=== PATIENT | female | born 1965 | race Caucasian/White ===

== ENCOUNTER 2019-06-13 10:06 | Outpatient (CLI) | payer MEDICARE, SELFPAY ==
[2019-06-13 10:23] LABS: Basophils Absolute Auto 0.03 K/mm3 (0.00-0.10); Basophils Percent Auto 0.3 % (0.0-1.0); Eosinophils Absolute Auto 0.08 K/mm3 (0.02-0.50); Eosinophils Percent Auto 0.9 % (1.0-6.0); Hematocrit 38.8 % (35.0-49.0); Hemoglobin 13.2 g/dL (12.0-15.0); Immature Granulocyte Absolute 0.05 K/mm3 (0.00-0.00); Immature Granulocyte Percent A 0.6 % (0.0-0.0); Lymphocytes Percent Auto 16.8 % (18.0-42.0); Mean Corpuscular Volume 93.9 fL (78.0-102.0); Mean Platelet Volume 9.5 fl (9.2-11.8); Monocytes Absolute Auto 0.27 K/mm3 (0.10-0.90); Neutrophils Percent Auto 78.4 % (50.0-70.0); Platelet Count Result 569 K/mm3 (150-420); Red Blood Count 4.13 M/mm3 (4.20-5.40); Red Cell Distribution Width 13.1 % (11.6-14.4); White Blood Count 8.9 K/mm3 (4.8-10.8)
[2019-06-13 10:36] LABS: Hemoglobin A1C 5.7 % (<5.7)
[2019-06-13 11:15] LABS: Alanine Aminotransferase 16 U/L (14-59); Albumin Level 3.5 g/dL (3.4-5.0); Alkaline Phosphatase 132 U/L (46-116); Aspartate Amino Transferase 22 U/L (15-37); Bilirubin,Total 0.4 mg/dL (0.00-1.00); Blood Urea Nitrogen 12 mg/dL (7-18); Calcium 8.9 mg/dL (8.5-10.1); Carbon Dioxide 29 mmol/L (21-32); Chloride 94 mmol/L (98-108); Cholesterol 151 mg/dL (0-200); Estimated Glomerular Filt Rate > 60; Glucose 88 mg/dL (70-99); HDL Direct 75 mg/dL (40-60); LDL Cholesterol Calculated 27 mg/dL (<130); Osmolality Calculated 276 mOsm/kg (285-295); Sodium 134 mmol/L (136-145); Thyroid Stimulating Hormone Reflex 2.11 u/IU/mL (0.36-3.74); Total Protein 7.3 g/dL (6.4-8.2); Triglycerides 245 mg/dL (0-150)
[2019-06-17 02:25] LABS: Hepatitis C Signal to Cutoff 0.04 ratio (<1.00); Hepatitis C Virus Antibody Nonreactive (Nonreactive)
== END 2019-06-13 10:07 | disposition home or self-care (01) ==
PROVIDERS: PCP Family Medicine; Visit Provider Family Medicine
DX: M20.42 Other hammer toe(s) (acquired), left foot (principal); I10 Essential (primary) hypertension; E78.5 Hyperlipidemia, unspecified; Z11.59 Encounter for screening for other viral diseases; Z79.899 Other long term (current) drug therapy
CPT/HCPCS: 36415; 80053; 80061; 83036; 84443; 85025

== ENCOUNTER 2019-09-03 08:41 | Outpatient (CLI) | payer MEDICARE, MEDICAID, SELFPAY ==
--- NOTE | ~2019-09-03 | US_ITS ---
EXAMINATION: US soft tissue head and neck DATE: 09/03/2019 10:59 INDICATION: Localized swelling with multiple palpable abnormalities along the lateral right side of t he neck. TECHNIQUE: Multiple grayscale and Doppler ultrasound images of the lateral right neck were obtained. COMPARISON: None FINDINGS: There are multiple scattered ovoid nodules throughout the region of concern at the lateral right neck likely representing enlarged lymph nodes. The majority of the lesions are heterogeneously hypoechoic to the surrounding fat, a few with central anechoic cystic regions. The largest measures 4.3 x 2.5 x 2.8 cm with 3 nodules measuring at least 0.4 cm in maximal short axis diameter and at least addition al 3 smaller lesions. IMPRESSION: 1. Enlarged and heterogeneous appearing right cervical lymph nodes which given appearance are concern ing for either suppurative lymph nodes or necrotic metastatic lymph nodes such as in the setting of s quamous cell carcinoma. Differential would also include lymphoma. Recommend ultrasound-guided biopsy. Reviewed, dictated and finalized at location A. IMPRESSION: 1. Enlarged and heterogeneous appearing right cervical lymph nodes which given appearance are concerning for either suppurative lymph nodes or necrotic metast atic lymph nodes such as in the setting of squamous cell carcinoma. Differentia l would also include lymphoma. Recommend ultrasound-guided biopsy.
== END 2019-09-03 08:42 | disposition home or self-care (01) ==
LOC: CHSIMG 08:44
PROVIDERS: PCP Family Medicine; Visit Provider Nurse Practitioner Family
DX: R22.1 Localized swelling, mass and lump, neck (principal)
CPT/HCPCS: 76536

== ENCOUNTER 2019-09-12 10:15 | Outpatient (CLI) | payer MEDICARE, MEDICAID, SELFPAY ==
--- NOTE | ~2019-09-12 | US_ITS ---
EXAMINATION: US biopsy lymph node DATE: 09/12/2019 11:27 INDICATION: Right neck lymphadenopathy. TECHNIQUE: The procedure including the risks, benefits, and alternatives was discussed with the patie nt. Risks discussed included bleeding and infection. The patient understood the risks and agreed to p roceed. The skin overlying the right neck was prepped and draped in usual sterile fashion. Anestheti c was administered with 1% lidocaine subcutaneously. An 18 gauge core biopsy needle was then used to obtain 6 core biopsy specimens under continuous sonographic guidance. The entry site was cleaned and dressed. There were no immediate complications. FINDINGS: Ultrasound images demonstrate the needle in a 4.2 x 3.1 x 2.3 cm right internal jugular michael in lymph node. IMPRESSION: 1. Ultrasound-guided core needle biopsy of an enlarged right internal jugular chain lymph node. Reviewed, dictated and finalized at location A. IMPRESSION: 1. Ultrasound-guided core needle biopsy of an enlarged right internal jugular c dat lymph node.
== END 2019-09-12 10:16 | disposition home or self-care (01) ==
PROVIDERS: PCP Family Medicine; Visit Provider Nurse Practitioner Family
DX: R22.1 Localized swelling, mass and lump, neck (principal); C7B.8 Other secondary neuroendocrine tumors
CPT/HCPCS: 38505; 76942; 88184; 88185; 88305; 88342

== ENCOUNTER 2019-10-02 07:38 | Outpatient (CLI) | payer MEDICARE, MEDICAID, SELFPAY ==
--- NOTE | ~2019-10-02 | PE_ITS ---
EXAMINATION: PET skull to mid thigh DATE: 10/02/2019 11:19 INDICATION: Malignant neoplasm of the right upper lobe of the lung TECHNIQUE: Blood glucose level was 80 mg/dL. 8.828 mCi of 18-fluorodeoxyglucose (18-FDG) was administ ered i.v. Low dose computed tomography (CT) images were acquired from the base of the brain to the pr oximal thighs for attenuation correction and anatomic localization. Positron emission tomography (PET ) images were acquired in the same distribution beginning 58 minutes after injection. The dose-length product (DLP) was 829.28 mGy-cm. COMPARISON: 07/09/2018 FINDINGS: Head/neck: Photopenic areas involving the cerebellum and left frontal lobe are consistent with prior infarction. There is an approximately 3.9 x 3.3 cm right internal jugular chain lymph node with abnor mal FDG uptake and SUV max of 15.8. There is a 3.7 x 1.7 cm right posterior cervical triangle lymph n ode with an SUV max of 21.6. Physiologic uptake is noted in the oral cavity and vocal cords. Chest: No abnormal FDG uptake is identified. There is mild dependent atelectasis in the lungs. No ple ural effusion or pneumothorax is identified. No pathologically enlarged thoracic lymph nodes are iden tified. The heart size is normal. A cardiac loop recorder is implanted in the left anterior chest wal l. Calcified coronary artery atherosclerosis is noted. Abdomen/pelvis/proximal thighs: No abnormal FDG uptake is identified. The liver, spleen, pancreas, ga llbladder, and adrenal glands are normal. There is a 9 mm cyst of the left mid kidney. The right kidn ey is unremarkable. Physiologic FDG activity is present in the bowel and urinary tract. No pathologic ally enlarged abdominal or pelvic lymph nodes are identified. There is no free intraperitoneal gas or evidence of bowel obstruction. There is calcified atherosclerosis of the aorta and many of the other arteries. Musculoskeletal: No abnormal FDG uptake is identified. IMPRESSION: 1. Right neck lymphadenopathy with abnormal FDG uptake, consistent with biopsy-proven metastatic smal l cell neuroendocrine carcinoma. Reviewed, dictated and finalized at location A. IMPRESSION: 1. 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
--- NOTE | ~2019-10-02 | MR_ITS ---
EXAMINATION: MR brain/brain stem wo/w con DATE: 10/02/2019 09:34 INDICATION: Small cell lung cancer. TECHNIQUE: Magnetic resonance imaging (MRI) of the brain and brainstem was performed without and with 15 mL MultiHance intravenous contrast. Sequences included sagittal and axial T1-weighted FSE, axial diffusion-weighted FS EPI, axial T2*-weighted GRE, axial T2-weighted FLAIR Propeller, and axial T2-we ighted Propeller. Postcontrast sequences included axial, sagittal, and coronal T1-weighted FSE. Appar ent diffusion coefficient (ADC) maps were created. COMPARISON: None. FINDINGS: There is an old infarct in left frontal lobe. There are scattered areas of nonspecific incr eased T2-weighted signal intensity in the cerebral white matter. There are small old infarcts in the cerebellum bilaterally. There is an old lacunar infarct in right thalamus. The ventricles are normal in size. The orbits are normal. The paranasal sinuses are clear. The mastoid air cells are normal. IMPRESSION: 1. No evidence of metastatic disease. 2. Old infarcts in the cerebellum, right thalamus, and left frontal lobe. 3. Mild nonspecific cerebral white matter disease, which likely represents chronic small vessel ische sandra disease. Reviewed, dictated and finalized at location A. IMPRESSION: 1. No evidence of metastatic disease. 2. Old infarcts in the cerebellum, right thalamus, and left frontal lobe. 3. 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
[2019-10-02 08:55] LABS: Estimated Glomerular Filt Rate > 60
[2019-10-02 09:44] LABS: Glucose Point of Care 88 (65-105)
== END 2019-10-02 07:39 | disposition home or self-care (01) ==
PROVIDERS: Visit Provider Internal Medicine Hematology & Oncology
DX: C34.11 Malignant neoplasm of upper lobe, right bronchus or lung (principal); G93.89 Other specified disorders of brain; R59.1 Generalized enlarged lymph nodes
CPT/HCPCS: 36415; 70553; 78815; A9552; A9577

== ENCOUNTER 2019-10-08 01:09 | Outpatient (CLI) | payer MEDICARE, MEDICAID, SELFPAY ==
[2019-10-08 17:34] LABS: SARS-CoV-2 RNA PCR Negative
== END 2019-10-08 01:10 | disposition home or self-care (01) ==
LOC: ANHCOVIDDT 01:10
PROVIDERS: PCP Family Medicine; Visit Provider Surgery
DX: Z01.818 Encounter for other preprocedural examination (principal); Z11.59 Encounter for screening for other viral diseases
CPT/HCPCS: 87635; C9803; U0003

== ENCOUNTER 2019-10-09 01:35 | Day surgery (SDC) | payer MEDICARE, MEDICAID, SELFPAY ==
[2019-10-07 14:21] VITALS: BMI 29.1
[2019-10-09] VITALS (7 sets, daily range): BP systolic 109–160; BP diastolic 55–79; PULSE 69–75; RESP 12–20; TEMP 36.3–36.6; O2SAT 94–100
--- NOTE | ~2019-10-09 | XR_ITS ---
EXAMINATION: XR fl guide central line place EXAM DATE: 10/09/2019 08:43 INDICATION: Central line placement. TECHNIQUE: Fluoroscopy used during XR fl guide central line place performed by Dr. Diogenes Smith MD. The DAP for this procedure was 0.7 mGym2. FINDINGS: 2 images captured demonstrate a right-sided portacatheter, IJ approach with intact line in expected position of the cavoatrial junction. Correlate with procedure note. IMPRESSION: Fluoroscopy used during XR fl guide central line place. Reviewed, dictated and finalized at location B.
--- NOTE | ~2019-10-09 | XR_ITS ---
XR chest port-a-cath/central DATE: 10/09/2019 08:55 INDICATION: Port-A-Cath insertion TECHNIQUE: Portable AP chest on 10/09/2019 at 0851 hours COMPARISON: 12/06/2018 portable AP chest FINDINGS: Right internal jugular Port-A-Cath catheter is present, with the catheter tip overlying the upper right atrium. gambling monitor device overlies the lower left chest. Heart size appears normal. No hilar or mediasti nal enlargement. No pulmonary infiltrate or consolidation, pleural effusion or pulmonary vascular con gestion or pneumothorax is evident. Apparently old healed left surgical humeral neck fracture deformity. IMPRESSION: Right internal jugular Port-A-Cath catheter placement in right atrium; no pneumothorax No active cardiopulmonary disease Reviewed, dictated and finalized at Location A. Reviewed, dictated and finalized at location A. IMPRESSION: Right internal jugular Port-A-Cath catheter placement in right atri um; no pneumothorax No active cardiopulmonary disease
[2019-10-09] MEDS: LACTATED RINGERS 1,000 ML 30 ML IV CONT (06:40)
--- NOTE | 2019-10-09 06:41 | PM.HPGS ---
History of Present Illness History of Present Illness Consent: Risks, benefits, and alternatives of placement of a Oziel-cath because she will undergo chemotheraphy. have been discussed and questions answered. Patient agrees to proceed with procedure. Chief complaint: Small Cell Lung Cancer Narrative: Minnie Denton is a 54 year old female who recently presented with a neck mass. She reports this comes and goes. When she first noticed this it was painful but this is no longer painful. She went to her PCP and she was told this was a lipoma. She denies neck pain, numbness or tingling down her arms. She also has a left forearm mass also which she was informed this is a lipoma. She reports that she has had this for years. She has a history of 2 strokes and a heart attack and takes Plavix. She has a loop recorder in place. She reports her brother had lymphoma. She is seen in surgical evaluation at the request of Dr. Garza. Further W/U and core biopsy has revealed that this is a neck lymph node that is elarged due to small cell neuroendocrine lung cancer. Pt presents at this time for placement of a Oziel-cath because she will undergo chemotheraphy. Review of Systems Constitutional: Constitutional: Reports no additional constitutional complaints, Reports fatigue and Denies malaise Eyes: Eyes: Denies change in vision and Denies loss of vision ENT: Reports Normal hearing present, Denies change in voice, Denies dizziness, Denies hoarseness and Denies sore throat Cardiovascular: Cardiovascular: Denies chest pain, Denies leg edema and Denies dyspnea Respiratory: Respiratory: Denies cough, Denies dyspnea and Denies wheezing Gastrointestinal: Gastrointestinal: Denies hematochezia, Denies change in bowel habits and Denies heartburn Genitourinary: Genitourinary: Denies urinary frequency and Denies urinary incontinence Neurologic: Reports Normal hearing present, Denies confusion, Denies dizziness, Denies loss of vision, Denies memory loss and Denies seizure-like activity Psychiatric: Psychiatric: Denies confusion, Denies depression and Denies memory loss Endocrine: Endocrine: Denies cold intolerance and Reports fatigue Hematologic/Lymphatic: Hematologic/Lymphatic: Denies easy bleeding and Denies easy bruising Allergic/Immunologic: Allergic/Immunologic: Denies wheezing PMFSH Social History Social History Smoking packs per day: 1 Smoking cigarettes per day: 20.0 Years smoked: 43 Smoking pack-years: 43.00 Smoking status: Current every day smoker Tobacco type: cigarettes Alcohol intake: current Substance use type: marijuana Additional living arrangements comments: boyfriend Additional occupation/education comments: disability Gender identity (if verbalized by the patient): Female Spiritual care concerns: No Meds Home Medications and Allergies Home Medications Medication Instructions Recorded Confirmed Type albuterol sulfate 90 mcg/actuation 2 inhalation INHALATION Q4H PRN 09/19/19 10/07/19 Rx aerosol inhaler #18 gm clopidogrel 75 mg tablet 75 mg PO DAILY #90 tablet 09/19/19 10/09/19 Rx cyclobenzaprine 10 mg tablet 10 mg PO .at bedtime PRN #90 tablet 09/19/19 10/07/19 Rx escitalopram oxalate 20 mg tablet 20 mg PO DAILY #90 tablet 09/19/19 10/09/19 Rx fluticasone fur. 100 mcg-umeclid 1 inhalation INHALATION DAILY #60 09/19/19 10/07/19 Rx 62.5 mcg-vilant 25 mcg each inhalat.powder gabapentin 100 mg capsule 100 mg PO TID #240 cap 09/19/19 10/09/19 Rx lisinopril 40 mg tablet 40 mg PO DAILY #90 tablet 09/19/19 10/07/19 Rx pravastatin 80 mg tablet 80 mg PO DAILY #90 tablet 09/19/19 10/07/19 Rx aspirin 325 mg PO DAILY 10/07/19 10/09/19 History famotidine 20 mg PO DAILY 10/07/19 10/07/19 History hydrocodone-acetaminophen [[place]] 1 tablet PO Q4H PRN 10/07/19 10/09/19 History metoprolol succinate 100 mg PO BID 10/07/19 10/09/19 History omeprazole 40 mg PO
[2019-10-09] MEDS: IBUPROFEN IV 800 MG/200 ML 800 MG/200 ML BAG 400 MG IVPB (06:50)
--- NOTE | 2019-10-09 06:55 | WPDANESEPPF ---
Anes - Initial Pre Proc Eval Procedure: Operation Date: 10/09/19 07:30 Proposed Procedures p Insertion Oziel Cath - Diogenes Smith MD Date/Time: 10/09/19 06:55 Surgeon: Diogenes Smith MD Pre Op Diagnosis: Small Cell Lung Cancer Patient Data Age: 54 Gender: F Height: 1.65 m Weight: 79.38 kg Allergies Allergy/AdvReac Type Severity Reaction Status Date / Time rosuvastatin AdvReac Intermediate myalgia Verified 10/09/19 06:54 Home Medications Medication Instructions Recorded Confirmed Type albuterol sulfate 90 mcg/actuation 2 inhalation INHALATION Q4H PRN 09/19/19 10/07/19 Rx aerosol inhaler #18 gm clopidogrel 75 mg tablet 75 mg PO DAILY #90 tablet 09/19/19 10/07/19 Rx cyclobenzaprine 10 mg tablet 10 mg PO .at bedtime PRN #90 tablet 09/19/19 10/07/19 Rx escitalopram oxalate 20 mg tablet 20 mg PO DAILY #90 tablet 09/19/19 10/07/19 Rx fluticasone fur. 100 mcg-umeclid 1 inhalation INHALATION DAILY #60 09/19/19 10/07/19 Rx 62.5 mcg-vilant 25 mcg each inhalat.powder gabapentin 100 mg capsule 100 mg PO TID #240 cap 09/19/19 10/07/19 Rx lisinopril 40 mg tablet 40 mg PO DAILY #90 tablet 09/19/19 10/07/19 Rx pravastatin 80 mg tablet 80 mg PO DAILY #90 tablet 09/19/19 10/07/19 Rx aspirin 325 mg PO DAILY 10/07/19 10/07/19 History famotidine 20 mg PO DAILY 10/07/19 10/07/19 History hydrocodone-acetaminophen [[place]] 1 tablet PO Q4H PRN 10/07/19 10/07/19 History metoprolol succinate 100 mg PO BID 10/07/19 10/07/19 History omeprazole 40 mg PO DAILY 10/07/19 10/07/19 History Laboratory Tests 10/09/19 06:09 PT Pending INR Pending APTT Pending Patient hx anesthesia problems: none Family hx anesthesia problems: none PMFSH Social History Social History Smoking packs per day: 1 Smoking cigarettes per day: 20.0 Years smoked: 43 Smoking pack-years: 43.00 Smoking status: Current every day smoker Tobacco type: cigarettes Alcohol intake: current Substance use type: marijuana Additional living arrangements comments: boyfriend Additional occupation/education comments: disability Gender identity (if verbalized by the patient): Female Spiritual care concerns: No Anes - Eval Final PreProcedure Day of Procedure 10/09/19 06:55 Patient weight: overweight Heart: regular rate and rhythm Lungs: clear to auscultation and normal air movement Airway: Mallampati scale class IV Neurological: alert and oriented Last oral intake: >/= 8 hours ASA classification: III Emergent: no Anesthetic plan: proceed Anesthesia type and monitoring: general GIVS and standard monitoring Informed Consent: The patient's anesthetic plan and its attendant risks and benefits were discussed with the patient/family/POA. Questions were solicited and answers provided to the satisfaction of the patient/family/POA.
[2019-10-09 07:05] LABS: INR 0.9; Prothrombin Time 12.1 Seconds (11.1-14.7)
[2019-10-09 07:06] LABS: Partial Thromboplastin Time 23.1 SECONDS (22.3-36.8)
[2019-10-09] MEDS: ceFAZolin 2 GM/D5W 50 ML 2 GM/50 ML BAG IVPB (07:37)
[2019-10-09] MEDS: BUPIVACAINE/EPINEPHRINE 0.5% 30 ML VIAL 10 ML INFILTRATE (08:08)
[2019-10-09] MEDS: HEPARIN SODIUM 5,000 UNITS/ML VIAL 5000 UNITS IRRIGATION (08:09)
--- NOTE | 2019-10-09 08:48 | PM.PROC ---
Procedure Note - Detailed Date of procedure: 10/09/19 Pre-op diagnosis: Small Cell Lung Cancer Post-op diagnosis: same Procedure performed: placement of Port-A-Cath Description of procedure: Patient was seen and marked in the pre-op area prior to coming to the OR. Patient was brought to the operating room. She was placed supine on the operating table and general LMA anesthesia was induced. Patient's head was carefully turned to the left side while in the supine position and the patient's entire neck and anterior chest on both sides was prepped and draped in the usual sterile fashion. Following this the appropriate time-out was completed confirming procedure and patient. We confirmed that all the needed equipment was present in the room. Following this the ultrasound probe was draped into the field and using the probe we carefully identified the carotid artery and jugular vein on the right neck. I marked the skin directly over the Rt. internal jugular vein. Following this, using the continuous ultrasound guidance, a Cook needle was placed through the skin into this vein. I then was able to draw back good dark blood. Once this was completed a guidewire using a J-tip was advanced through the needle and then the needle and the guidewire cover were withdrawn. The Cook needle had to be repositioned a couple of times in J-wire did seem to easily insert until about 4th attempt at which it went straight down into the internal jugular and into the superior vena cava without difficulty and was able to be advanced just into the right atrium. I observed with the C-arm fluoroscopy as we tried these attempts to maneuver the wire into the central venous system. This seemed to work out well. C-arm fluoroscopy was used to confirm that the guidewire was nicely in the central venous system. Once this was confirmed with the C - arm, I preceded on by making the pocket for the port on the patient's anterior right chest approximately 3 centimeters below the clavicle overlying the chest wall. Local anesthetic was infiltrated into the skin where there was a transverse incision marked out. Incision was made and we made a pocket inferior to the incision with just a little dissection superior. The Smart port was tried in the pocket and seemed to fit well. Following this the catheter which had been placed on a tunneling device was tunneled from the port site on the anterior right chest up to the right neck where a small incision had been made with an #11 blade knife right next to the wire. Then the catheter was pulled through so that we would have 15 centimeters to put into the central venous system once the dilation took place. Following this we placed the dilator and sheath over the guidewire in the Rt. jugular vein and carefully dilated the tract into the central venous system. The guidewire and dilator were then removed, carefully covering the end of the sheath to prevent air embolus. The end of the catheter which had been taken off the tunneling device and the tip checked was then inserted into the sheath and into the neck. I then carefully pulled the 2 arms of the tear-away sheath away as the research assistant professor held the catheter in position with a DeBakey forceps. Following this we checked the position of the catheter with C-arm fluoroscopy confirming that the tip seemed to be in the distal superior vena cava near the junction with the right atrium. I felt that it was in good position and so the rest of the catheter was pulled down toward the feet into the port site. We then measured to the appropriate position to cut the catheter to attach it to the port stem. Then the connector sealing device for the catheter port was placed onto the catheter and then the catheter cut to the appropriate length and inserted onto the stem of the port. Then the connector was advanced onto the stem over the catheter sealing it to the port. A single 3- 0 Prolene suture was also used during this to suture the
--- NOTE | 2019-10-09 09:01 | SUR.PHASEI ---
0858 - dr. waters reviewed chest xray.
== END 2019-10-09 10:25 | disposition home or self-care (01) ==
PROVIDERS: PCP Family Medicine; Visit Provider Surgery
PROC: (CPT 36561; principal; 2019-10-09 07:30)
DX: C34.90 Malignant neoplasm of unspecified part of unspecified bronchus or lung (principal); J43.9 Emphysema, unspecified; F17.210 Nicotine dependence, cigarettes, uncomplicated; E66.9 Obesity, unspecified; Z68.30 Body mass index [BMI] 30.0-30.9, adult; I10 Essential (primary) hypertension; I25.10 Atherosclerotic heart disease of native coronary artery without angina pectoris; I63.9 Cerebral infarction, unspecified; R22.30 Localized swelling, mass and lump, unspecified upper limb
CPT/HCPCS: 36561; 36415; 77001; 85610; 85730; C1788; J0690; J1100; J1644; J1741; J2250; J2405; J2704; J3010; J7030; J7120

== ENCOUNTER 2019-11-05 08:30 | Outpatient (RCR) | payer MEDICARE, MEDICAID, SELFPAY ==
[2019-09-23 10:36] LABS: Basophils Percent Auto 0.4 % (0.2-1.2); Eosinophils Absolute Auto 0.2 K/mm3 (0-0.3); Hematocrit 35.8 % (37.0-47.0); Immature Granulocyte Absolute 0.04 K/mm3 (0.00-0.031); Immature Granulocyte Percent A 0.4 % (0-0.5); Lymphocytes Absolute Auto 1.67 K/mm3 (0.9-3.2); Lymphocytes Percent Auto 16.5 % (18.3-44.2); Mean Corpuscular HGB Conc 33.5 g/dl (32-36); Mean Corpuscular Hemoglobin 32.9 pg (26-34); Mean Corpuscular Volume 98.1 fl (80-100); Mean Platelet Volume 9.6 fl (7.4-10.4); Monocytes Absolute Auto 0.5 K/mm3 (0.1-0.6); Monocytes Percent Auto 5.2 % (2.6-8.5); Neutrophils Absolute Auto 7.7 K/mm3 (1.3-6.7); Neutrophils Percent Auto 75.5 % (45.5-73.1); Platelet Count Result 533 k/mm3 (150-375); Red Blood Count 3.65 M/mm3 (4.2-5.4); Red Cell Distribution Width 13.9 % (11.5-14.5); White Blood Count 10.1 K/mm3 (4.5-10.0)
[2019-09-23 12:46] LABS: Alanine Aminotransferase 16 U/L (4-35); Albumin Level 4.2 g/dL (3.5-5.1); Alkaline Phosphatase 136 U/L (38-126); Aspartate Amino Transferase 33 U/L (14-36); Bilirubin,Total 0.4 mg/dL (0.2-1.3); Blood Urea Nitrogen 9 mg/dL (7-17); Calcium 9.4 mg/dL (8.4-10.2); Carbon Dioxide 29 mmol/L (22-30); Chloride 94 mmol/L (98-107); Estimated Glomerular Filt Rate > 60; Glucose 86 mg/dL (65-105); Potassium 4.9 mmol/L (3.4-5.0); Sodium 130 mmol/L (137-145)
[2019-10-31 12:17] LABS: Basophils Percent Auto 0.5 % (0.2-1.2); Eosinophils Absolute Auto 0.1 K/mm3 (0-0.3); Eosinophils Percent Auto 1.6 % (0-4.4); Hematocrit 36.4 % (37.0-47.0); Hemoglobin 11.9 g/dL (12.0-15.0); Immature Granulocyte Absolute 0.03 K/mm3 (0.00-0.031); Immature Granulocyte Percent A 0.4 % (0-0.5); Lymphocytes Absolute Auto 1.11 K/mm3 (0.9-3.2); Mean Corpuscular HGB Conc 32.7 g/dl (32-36); Mean Corpuscular Hemoglobin 31.7 pg (26-34); Mean Corpuscular Volume 97.1 fl (80-100); Monocytes Absolute Auto 0.6 K/mm3 (0.1-0.6); Monocytes Percent Auto 8.2 % (2.6-8.5); Neutrophils Absolute Auto 5.5 K/mm3 (1.3-6.7); Neutrophils Percent Auto 74.3 % (45.5-73.1); Platelet Count Result 458 k/mm3 (150-375); Red Blood Count 3.75 M/mm3 (4.2-5.4); Red Cell Distribution Width 14.2 % (11.5-14.5); White Blood Count 7.4 K/mm3 (4.5-10.0)
[2019-10-31 12:20] LABS: Blood Urea Nitrogen 8 mg/dL (8-26); Carbon Dioxide 24 mmol/L (22-30); Chloride 91 mmol/L (98-109); Estimated CRCL calculation 59 ml/min; Estimated Glomerular Filt Rate 57; Glucose 91 mg/dL (70-105); Potassium 4.7 mmol/L (3.5-4.9); Sodium 128 mmol/L (138-146)
[2019-10-31 13:34] LABS: Magnesium 1.7 mg/dL (1.6-2.3)
[2019-11-03] MEDS: PALONOSETRON HCL 0.25 MG/5 ML VIAL IV PUSH (09:17)
[2019-11-03 09:23] VITALS: BP 98/64; PULSE 93; RESP 16; TEMP 35.8; O2SAT 99
[2019-11-03] MEDS: HEPARIN SOD FLUSH 500 UNITS/5 ML SYRINGE IV PUSH (13:20)
[2019-11-03 13:21] VITALS: BP 126/79; PULSE 79; RESP 16; TEMP 36.8; O2SAT 99
[2019-11-04 08:50] VITALS: BP 127/70; PULSE 89; RESP 16; TEMP 36.7; O2SAT 100
[2019-11-04] MEDS: HEPARIN SOD FLUSH 500 UNITS/5 ML SYRINGE IV PUSH (11:15)
[2019-11-04 11:16] VITALS: BP 144/63; PULSE 85; RESP 16; O2SAT 98
[2019-11-05 08:49] VITALS: BP 153/62; PULSE 77; RESP 1; TEMP 37; O2SAT 100
[2019-11-05] MEDS: ONDANSETRON INJ 4 MG/2 ML VIAL 8 MG IV PUSH (08:59)
[2019-11-05] MEDS: PEGFILGRASTIM (ONPRO KIT) 6 MG/0.6 ML SYRINGE SUB-Q (10:42)
[2019-11-05] MEDS: HEPARIN SOD FLUSH 500 UNITS/5 ML SYRINGE IV PUSH (10:49)
== END 2019-12-09 15:35 | disposition hospice, inpatient (51) ==
LOC: AMCINF 08:30
PROVIDERS: Visit Provider Internal Medicine Hematology & Oncology
DX: Z51.11 Encounter for antineoplastic chemotherapy (principal); C34.90 Malignant neoplasm of unspecified part of unspecified bronchus or lung; I10 Essential (primary) hypertension; I63.9 Cerebral infarction, unspecified; I25.10 Atherosclerotic heart disease of native coronary artery without angina pectoris; I25.2 Old myocardial infarction; J44.1 Chronic obstructive pulmonary disease with (acute) exacerbation; G47.30 Sleep apnea, unspecified; E66.9 Obesity, unspecified; E78.5 Hyperlipidemia, unspecified; K21.9 Gastro-esophageal reflux disease without esophagitis; M20.42 Other hammer toe(s) (acquired), left foot; M19.90 Unspecified osteoarthritis, unspecified site; R45.0 Nervousness; F41.1 Generalized anxiety disorder; R39.15 Urgency of urination; F17.210 Nicotine dependence, cigarettes, uncomplicated; Z95.5 Presence of coronary angioplasty implant and graft; Z79.02 Long term (current) use of antithrombotics/antiplatelets; Z86.73 Personal history of transient ischemic attack (TIA), and cerebral infarction without residual deficits; Z76.89 Persons encountering health services in other specified circumstances
CPT/HCPCS: 36415; 80048; 80053; 83735; 84443; 85025; 96366; 96367; 96372; 96375; 96413; 96417; J1100; J2405; J2469; J2505; J7040; J7050; J7060; J9022; J9045; J9181

== ENCOUNTER 2019-11-13 21:36 | Emergency (ER) | payer MEDICARE, MEDICAID, SELFPAY ==
--- NOTE | ~2019-11-13 | XR_ITS ---
XR chest 1V portable 11/13/2019 22:35 Indication: Weakness, hypotension, cough and shortness of breath. Small cell lung cancer. Procedure: AP portable chest Comparison: Comparison to multiple prior studies sequentially, with oldest reviewed study dated 12/30. Findings: Retrocardiac airspace consolidation. Cardiomegaly. Port catheter tip in the condyle aspect of the SVC. Right lung clear. No pneumothorax. Impression: 1: Retrocardiac airspace disease, suspicious for pneumonia. 2: Cardiomegaly. Reviewed, dictated and finalized at location A. Impression: 1: Retrocardiac airspace disease, suspicious for pneumonia. 2: Cardiomegaly.
--- NOTE | 2019-11-13 21:52 | ED.WEAKNESS ---
HPI - Weakness General Chief complaint: Weakness Stated complaint: AMB Time Seen by Provider: 11/13/19 21:53 Source: patient Mode of arrival: EMS Limitations: no limitations History of Present Illness HPI Narrative: 54-year-old woman with severe COPD who is now being treated for small cell lung cancer with chemotherapy (last dose this morning ) and radiation therapy comes today via EMS for weakness. Her significant other states that she has got progressively weaker over the last week. She was unable to get out of bed today and was incontinent of stool 3 times and has not had any urine output today. She has had no vomiting, fever, rash, increased shortness of breath, dysuria, Hematuria, bloody stools. She states that she had an episode in the last week where she felt weak and fell to the floor. Her states that she can walk on her own but she does not walk normally. MD Complaint: generalized weakness and difficulty walking Onset (ago): week(s) (1) Duration: constant Location: generalized Migration: none Severity: moderate Relieving factors: none Exacerbating factors: movement and exertion Related Data Home Medications Medication Instructions Recorded Confirmed aspirin 325 mg PO DAILY 10/07/19 11/13/19 famotidine 20 mg PO DAILY 10/07/19 11/13/19 hydrocodone-acetaminophen [[place]] 1 tablet PO Q4H PRN 10/07/19 11/13/19 metoprolol succinate 100 mg PO BID 10/07/19 11/13/19 Allergies Allergy/AdvReac Type Severity Reaction Status Date / Time rosuvastatin AdvReac Intermediate myalgia Verified 10/09/19 06:54 Review of Systems Constitutional: Constitutional: Reports as per HPI, Denies chills, Denies fever(s) and Reports weakness Eyes: Eyes: Denies change in vision and Denies photophobia ENT: Denies dysphagia, Denies nasal congestion and Denies sore throat Cardiovascular: Cardiovascular: Denies chest pain and Denies radiating jaw, neck or arm pain Respiratory: Respiratory: Denies chest congestion, Denies cough, Reports dyspnea ( Chronic, no change) and Denies wheezing Gastrointestinal: Gastrointestinal: Denies diarrhea, Denies nausea and Denies vomiting Comments: Poor intake. Genitourinary: Genitourinary: Denies hematuria, Denies nocturia and Denies dysuria Musculoskeletal: Musculoskeletal: Denies back pain, Denies arthralgias and Denies joint swelling Integumentary/Breasts: Skin/Breast: Denies pruritus, Denies erythema and Denies rash Neurologic: Denies vertigo, Denies dizziness and Denies syncope Endocrine: Endocrine: Denies polydipsia and Denies polyuria Hematologic/Lymphatic: Hematologic/Lymphatic: Denies easy bleeding and Denies easy bruising Allergic/Immunologic: Allergic/Immunologic: Denies lip swelling, Denies throat swelling and Denies tongue swelling [facility] Past Medical History Medical History Asthma CAD (coronary atherosclerotic disease) Catie vaginitis Chronic back pain Chronic GERD COPD (chronic obstructive pulmonary disease) CVA (cerebral vascular accident) x2 Emphysema lung Hernia Hyperlipidemia Hypertension Myocardial infarction Nicotine dependence Obesity (BMI 30-39.9) Sleep apnea Surgical History Surgical History H/O prior ablation treatment age 33 H/O tubal ligation age 26 History of heart artery stent S/P cardiac cath Social History Social History Smoking packs per day: 2 Smoking cigarettes per day: 40.0 Years smoked: 40 Smoking pack-years: 80.00 Smoking status: Current every day smoker Tobacco type: cigarettes Additional smoking assessment comments: down to 1 pack per day Alcohol intake: current Substance use type: marijuana Additional living arrangements comments: boyfriend Additional occupation/education comments: disability Gender identity (if verbalized by the biju
[2019-11-13 22:00] VITALS: BP 74/44; PULSE 111; RESP 19; TEMP 37.1; O2SAT 100
[2019-11-13] MEDS: SODIUM CHLORIDE 0.9% IV 1,000 ML 1000 ML (22:00)
--- NOTE | 2019-11-13 22:14 | ECG_ITS ---
Measurements Intervals [place] Rate: 103 P: 50 OR: 128 QRS: 35 QRSD: 150 T: 189 QT: 352 QTc: 461 Interpretive Statements SINUS TACHYCARDIA LEFT BUNDLE BRANCH BLOCK BASELINE ARTIFACT- II, III, AVR, AVL, AVF, V5-V6 ABNORMAL ECG Electronically Signed On 11-14-2019 7:04:22 CDT by Moris Ramos D.O.
[2019-11-13 22:49] LABS: Hematocrit 25.1 % (35.0-49.0); Hemoglobin 8.4 g/dL (12.0-15.0); Immature Platelet Fraction Pct 6.9 % (1.0-7.0); Mean Corpuscular HGB Conc 33.5 g/dL (32.0-36.0); Mean Corpuscular Hemoglobin 31.6 pg (27.0-31.0); Mean Corpuscular Volume 94.4 fL (78.0-102.0); Mean Platelet Volume 11.3 fl (9.2-11.8); Platelet Count Result 77 K/mm3 (150-420); Red Blood Count 2.66 M/mm3 (4.20-5.40); Red Cell Distribution Width 13.5 % (11.6-14.4); White Blood Count 2.3 K/mm3 (4.8-10.8)
[2019-11-13 22:50] LABS: Add Urine Microscopic? NO; Appearance Urine Clear (Clear); Bilirubin Urine Negative (Negative); Blood Urine Negative (Negative); Color Urine Yellow (Yellow); Glucose Urine UA Negative (Negative); Ketones Urine Negative (Negative); Leukocyte Esterase Ur Negative LEU/UL (Negative); Nitrate Urine Negative (Negative); Protein Urine Negative (Negative); Specific Grav Ur 1.025 (1.010-1.020); Urobilinogen Urine 0.2 mg/dL (0.2-1.0)
[2019-11-13 22:56] LABS: Amphetamine Screen Urine Negative (Negative); Barbiturate Screen Urine Negative (Negative); Benzodiazepines Screen Urine Positive (Negative); Cannabinoid Screen Urine Positive (Negative); Cocaine Screen Urine Negative (Negative); Methadone Screen Urine Negative (Negative); Opiate Screen Urine Positive (Negative); Phencyclidine Screen Urine Negative (Negative)
[2019-11-13 23:00] LABS: INR 1.3; Prothrombin Time 13.4 Seconds (9.64-11.0)
[2019-11-13 23:05] LABS: Lactic Acid Reflex 1.6 mmol/L (0.4-2.0)
[2019-11-13] MEDS: ONDANSETRON INJ 4 MG/2 ML VIAL IV PUSH ×2 (23:12→23:52)
[2019-11-13 23:13] LABS: Band Neutrophils Percent 0 % (0-6); Basophils Percent Manual 0 % (0-1); Eosinophils Absolute Manual 0.04 K/mm3 (0.02-0.5); Eosinophils Percent Manual 2 % (1-6); Lymphocytes Absolute Manual 0.23 K/mm3 (1.1-4.5); Lymphocytes Percent Manual 10 % (18-44); Monocytes Absolute Manual 0.57 K/mm3 (0.1-0.90); Monocytes Percent Manual 25 % (3-9); Myelocytes Percent 6 %; Neutrophils Absolute Manual 1.31 K/mm3 (1.7-7.2); Neutrophils Percent Manual 57 % (46-73)
[2019-11-13 23:14] LABS: Platelet Estimate Decreased (Adequate)
[2019-11-13] MEDS: SODIUM CHLORIDE 0.9% IV 1,000 ML 999 ML IV CONT (23:14)
[2019-11-13 23:15] LABS: Acetaminophen 6 ug/mL (10-30); Alanine Aminotransferase 12 U/L (14-59); Albumin Level 2.1 g/dL (3.4-5.0); Alkaline Phosphatase 144 U/L (46-116); Anion Gap 13.3 mmol/L (7-16); Aspartate Amino Transferase 26 U/L (15-37); Bilirubin,Total 0.5 mg/dL (0.00-1.00); Blood Urea Nitrogen 32 mg/dL (7-18); Calcium 7.9 mg/dL (8.5-10.1); Carbon Dioxide 23 mmol/L (21-32); Chloride 88 mmol/L (98-108); Estimated Glomerular Filt Rate 26; Glucose 81 mg/dL (70-99); Lipase 12 U/L (73-393); Osmolality Calculated 255 mOsm/kg (285-295); Potassium 4.3 mmol/L (3.5-5.1); Salicylate 2.9 mg/dL (2.8-20.0); Total Protein 5.9 g/dL (6.4-8.2)
[2019-11-13 23:20] LABS: CRP > 11.0 mg/dL (0.0-0.9); Ethanol < 3 mg/dL (0-6); Sodium 120 mmol/L (136-145)
--- NOTE | 2019-11-13 23:27 | PC.NURSE ---
Pt. requests transfer to her oncologist at [facility]. Call placed to Jai Churchill. will page for Dr. Askew and await callback.
[2019-11-13 23:29] VITALS: BP 91/47; PULSE 103; RESP 18; TEMP 37.1; O2SAT 99
[2019-11-13 23:38] LABS: BNP 403 pg/mL (0-100)
[2019-11-14] MEDS: SODIUM CHLORIDE 0.9% IV 1,000 ML 200 ML IV CONT (00:13)
--- NOTE | 2019-11-14 00:15 | PC.NURSE ---
[address] Askew, ERP spoke to Dr. Askew, will call docking pilot and check bed availability, will await callback from [facility]. Pt. resting c POA/friend at bedside. Pt. remains alert but groggy Fluids infusing per order. VSS at this time c BP 104/44
[2019-11-14 00:16] VITALS: BP 104/44; PULSE 108; RESP 20; O2SAT 100
--- NOTE | 2019-11-14 00:28 | PC.NURSE ---
Pt. taking sips of water, c/o feeling blood in her mouth, noted old blood around lips, mouth cleansed and pt.sippting ice water. BP now 112/40.
--- NOTE | 2019-11-14 00:32 | PC.NURSE ---
Call back from Naveen landeros bed assignment and # for report. Call placed for pt. to go ICU 9.
[2019-11-14 00:34] VITALS: BP 90/50; PULSE 108; RESP 20; TEMP 37.1; O2SAT 100
--- NOTE | 2019-11-14 01:00 | PC.NURSE ---
Report given to [facility] for pt. transfer. Pt. A&Ox3, answers questions appropriately. BP 90/45, HR 108.
== END 2019-11-14 01:03 | disposition short-term general hospital (02) ==
PROVIDERS: Emergency Provider Emergency Medicine
DX: J18.9 Pneumonia, unspecified organism (principal); J96.91 Respiratory failure, unspecified with hypoxia; I95.9 Hypotension, unspecified; Z79.899 Other long term (current) drug therapy; I25.10 Atherosclerotic heart disease of native coronary artery without angina pectoris; J44.9 Chronic obstructive pulmonary disease, unspecified; Z86.73 Personal history of transient ischemic attack (TIA), and cerebral infarction without residual deficits; F17.200 Nicotine dependence, unspecified, uncomplicated; E78.5 Hyperlipidemia, unspecified; I25.2 Old myocardial infarction
CPT/HCPCS: 36415; 71045; 80053; 80307; 81003; 83605; 83690; 83880; 85025; 85055; 85610; 85730; 86140; 87040; 93005; 96361; 96365; 96375; 96376; 99285; J0696; J2405; J7030

== ENCOUNTER 2019-11-14 01:37 | Inpatient (IN) | payer MEDICARE, MEDICAID, SELFPAY ==
[2019-11-14] VITALS (20 sets, daily range): BP systolic 92–145; BP diastolic 38–72; PULSE 112–141; RESP 17–32; TEMP 36.9–37.4; O2SAT 92–100; BMI 30.6
--- NOTE | ~2019-11-14 | XR_ITS ---
EXAMINATION: XR chest 1V portable EXAM DATE: 11/15/2019 05:47 INDICATION: Pneumonia. TECHNIQUE: Portable AP frontal chest x-ray was obtained. Comparison is made to prior examination from 11/14/2019. FINDINGS: There is a right-sided Chemo-Port. There is moderate amount of left-sided abnormal reticula tion, acute airspace disease. The cardiomediastinal silhouette is prominent but magnified on this AP technique. There is cardiac monitoring device. There is no pneumothorax suspected. There are no pleu ral effusions. Compared to yesterday, either stable or with slight interval improvement. IMPRESSION: Moderate left-sided acute airspace disease, most likely acute infectious process. Reviewed, dictated and finalized at location A. IMPRESSION: Moderate left-sided acute airspace disease, most likely acute infec tious process.
--- NOTE | ~2019-11-14 | CT_ITS ---
EXAMINATION: CTA chest PE protocol DATE: 11/17/2019 13:38 INDICATION: Intermediate probability pulmonary ventilation/perfusion scan on 11/14/2019 TECHNIQUE: Computed tomography angiography (CTA) of the chest was performed with 100 mL Omnipaque-350 intravenous contrast timed to evaluate the pulmonary arteries. Coronal maximum intensity projection 3D-reconstructions were created by the technologist. Automated exposure control and iterative reconst ruction technique were employed. Exam dose: 827.18 mGy-cm total exam DLP. COMPARISON: None. FINDINGS: There is diagnostic contrast enhancement of the pulmonary arteries. Bilateral pulmonary emb alok are noted. There is complete thrombosis of the left lower lobe pulmonary artery, with extensive l eft lower lobe infiltrate and cystic changes. Additional thrombus is identified in the right lower lobe, lingula and left upper lobe. Partially included in the upper most images is a right cervical soft tissue mass or lymphadenopathy o r hematoma measuring up to 3-3 5 cm dimension. There are some areas of hyperdensity measuring up to 1 10 Hounsfield units which may represent some bleeding or possibly contrast enhancement of the tumor. Consider CT negative examination for further evaluation. There is an adjacent right internal jugular Port-A-Cath catheter. No hilar or mediastinal mass lesion or lymphadenopathy. No thoracic aortic aneurysm or dissection. Normal heart size. There is coronary artery calcification. No pericardial effusion. Emphysematous changes are noted. Evaluation of the lungs is limited by motion artifact. There is dependent atelectasis in the right lower lobe and small right pleural effusion. Fracture deformity of the proximal left humerus. There is mild anterior wedge compression fracture deformity of T12, moderate anterior wedge compressi on fracture deformity of T9. Diffuse osteopenia. IMPRESSION: Bilateral pulmonary emboli; complete occlusion of the left lower lobe pulmonary artery There is extensive infiltrate and cystic change in left lower lobe of concern for pulmonary infarctio n Right lower cervical mass, possibly hematoma versus tumor or adenopathy Emphysema Dr. Rodriguez telephoned the results to [facility] Medical Nurse Lizette of the pulmonary emboli on 11/17/2019 at 1458 hours. Reviewed, dictated and finalized at Location A. Reviewed, dictated and finalized at location B. IMPRESSION: Bilateral pulmonary emboli; complete occlusion of the left lower l obe pulmonary artery There is extensive infiltrate and cystic change in left lower lobe of concern f or pulmonary infarction Right lower cervical mass, possibly hematoma versus tumor or adenopathy Emphysema Dr. Rodriguez telephoned the results to 3rd Medical Nurse Lizette of the pulmonary emboli on 11/17/2019 at 1458 hours.
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
--- NOTE | ~2019-11-14 | US_ITS ---
EXAMINATION:US venous doppler LE BI INDICATION:Septic shock. Right lung cancer. TECHNIQUE: Multiple grayscale, color flow and Doppler images of the right and left lower extremity de ep venous systems were obtained and reviewed. COMPARISON:No prior studies for comparison. FINDINGS: The common femoral, superficial femoral and popliteal veins demonstrate normal respiratory variation, augmentation and compressibility. Color flow is also seen within the posterior tibial, pe roneal, greater saphenous and profunda veins. IMPRESSION: 1: No lower extremity deep venous thrombosis. Reviewed, dictated and finalized at location A.
--- NOTE | ~2019-11-14 | XR_ITS ---
EXAMINATION: XR chest 2V DATE: 11/20/2019 09:44 INDICATION: Pneumonia TECHNIQUE: AP and lateral views of the chest are obtained. COMPARISON: 11/15/2019, 11/17/2019 FINDINGS: There is persistent near complete opacification of the left lower lobe. An area of cavitati on appears to have developed. Small pleural effusions are present. There is no pneumothorax. A right internal jugular Port-A-Cath ends with its tip in the distal superior vena cava. The heart size is no rmal. There is moderate thoracic spondylosis. IMPRESSION: 1. Persistent left lower lobe opacities with possible development of cavitation, consistent with pneu monia and/or pulmonary infarct. Reviewed, dictated and finalized at location A. IMPRESSION: 1. Persistent left lower lobe opacities with possible development of cavitation , consistent with pneumonia and/or pulmonary infarct.
--- NOTE | ~2019-11-14 | NM_ITS ---
. EXAMINATION: NM pulmonary perfusion DATE: 11/14/2019 12:15 INDICATION: Shortness of breath. TECHNIQUE: 5.5 mCi Tc-99m MAA was administered intravenously for perfusion images. Scintigraphic shan ges of the chest were obtained. COMPARISON: Chest single view 11/14/2019 FINDINGS: Perfusion images show large defects throughout left lower lobe matched with the chest radiograph abno rmality. There are moderate-sized, large, and small defects in right lower lobe. ] IMPRESSION: 1. Nondiagnostic (intermediate probability). Reviewed, dictated and finalized at location A.
--- NOTE | ~2019-11-14 | CT_ITS ---
EXAMINATION: CT chest w con EXAM DATE: 11/20/2019 17:23 INDICATION: Rule out left lower lobe empyema or abscess. TECHNIQUE: Spiral CT of the chest following intravenous injection of 75 mL Omnipaque 350. Axial, cor onal and sagittal images were reviewed. Coronal maximum intensity pixel images of chest reviewed. Kj chen dose-length product (DLP) for this examination was 603.47 mGy-cm. The exposure was tailored accor ding to patient size (auto mA exposure control), and iterative reconstruction (ASIR) was used as krystian tional dose reduction technique. Comparison is made to prior examination from 11/17/2019. FINDINGS: Again there is pulmonary embolism occluding the left lower lobe pulmonary artery and its br anches. There is mild emphysema. There is large amount of dense left lower lobe acute airspace disea se, some increase in confluence compared to prior study and also increase in the multiloculated cavit mariela region centrally measuring up to about 5 cm today. Probably some combination of infarction and in fection. There is small to moderate-sized left pleural effusion, may have loculation. No definite ple ural enhancement. There is trace right pleural effusion. There is right lower lobe atelectasis. Tracheobronchial tree is patent. There is no mediastinal, hilar or axillary lymphadenopathy. Ther e is no pneumothorax. Heart normal in size. There is mild coronary arterial calcification, arteri al sclerosis. There is a right-sided portacatheter. Upper abdomen is unremarkable. There is thorac ic spondylosis without osteoblastic or osteolytic lesions identified. IMPRESSION: 1. Persistent left lower lobe occlusion likely pulmonary thrombosis. 2. Progression in left lower lobe extensive airspace disease and cavitation, infarction and probably necrotic pneumonia. 3. Small to moderate left pleural effusion, mild increase in size. Possibly loculated. 4. Right lower lobe subsegmental atelectasis and trace pleural effusion. Reviewed, dictated and finalized at location A. IMPRESSION: 1. Persistent left lower lobe occlusion likely pulmonary thrombosis. 2. Progression in left lower lobe extensive airspace disease and cavitation, i nfarction and probably necrotic pneumonia. 3. Small to moderate left pleural effusion, mild increase in size. Possibly lo culated. 4. Right lower lobe subsegmental atelectasis and trace pleural effusion.
--- NOTE | 2019-11-14 02:01 | PM.IMHP ---
H&P: HPI History of Present Illness Chief complaint: Septic shock Narrative: This is a 54 year old female who is known to have right sided small cell lung cancer , COPD, and CAD presented to [facility] with a complaint of generalized weakness. She is currently being treated with both chemotherapy and radiation therapy for her cancer. Today her boyfriend brought her to the hospital after she was found to be too weak to get out of bed and incontinent of stool. The patient herself complains of a productive cough and worsening shortness of breath for the past 2 days. She denies any chest pain, sore throat, abdominal pain, vomiting, fevers, chills, dysuria, hematuria or diarrhea. She does report nausea. The patient was found to be septic at [facility] and despite receiving 3 liters of NS IV bolus she continues to be hypotensive. She was placed on 2 liters of oxygen via NC. The patient has been transferred to our hospital for further care. EMS repored that the patient began to have productive cough of bloody sputum on her way to the hospital [facility]. She also reported no urine output today. Radio Interference Trouble Shooter, Dr. Marie has been consulted. Review of Systems Review of Systems: All systems reviewed & are unremarkable except as noted in HPI and below PMFSH Past Medical History Medical History Asthma CAD (coronary atherosclerotic disease) Catie vaginitis Chronic back pain Chronic GERD COPD (chronic obstructive pulmonary disease) CVA (cerebral vascular accident) x2 Emphysema lung Hernia Hyperlipidemia Hypertension Myocardial infarction Nicotine dependence Obesity (BMI 30-39.9) Sleep apnea Surgical History Surgical History H/O prior ablation treatment age 33 H/O tubal ligation age 26 History of heart artery stent S/P cardiac cath Family History Family History Father Cancer History of blood clots Mother No problems noted. Sibling Cancer Other Family history of malignant neoplasm Social History Social History Smoking packs per day: 2 Smoking cigarettes per day: 40.0 Years smoked: 40 Smoking pack-years: 80.00 Smoking status: Former smoker Tobacco type: cigarettes Smoking end date: 04/16/18 Additional smoking assessment comments: has open pack in purse, but will not admit to smoking. Alcohol intake: current Drinks per week: 25 Substance use type: marijuana and prescription drug Last use: 11/10/19 Additional living arrangements comments: boyfriend Additional occupation/education comments: disability Gender identity (if verbalized by the patient): Female Meds Home Medications and Allergies Home Medications Medication Instructions Recorded Confirmed Type albuterol sulfate 90 mcg/actuation 2 inhalation INHALATION Q4H PRN 09/19/19 11/14/19 Rx aerosol inhaler #18 gm cyclobenzaprine 10 mg tablet 10 mg PO .at bedtime PRN #90 tablet 09/19/19 11/14/19 Rx escitalopram oxalate 20 mg tablet 20 mg PO DAILY #90 tablet 09/19/19 11/14/19 Rx fluticasone fur. 100 mcg-umeclid 1 inhalation INHALATION DAILY #60 09/19/19 11/14/19 Rx 62.5 mcg-vilant 25 mcg each inhalat.powder gabapentin 100 mg capsule 100 mg PO TID #240 cap 09/19/19 11/14/19 Rx lisinopril 40 mg tablet 40 mg PO DAILY #90 tablet 09/19/19 11/14/19 Rx hydrocodone-acetaminophen [[place]] 1 tablet PO Q4H PRN 10/07/19 11/14/19 History metoprolol succinate 100 mg PO BID 10/07/19 11/14/19 History omeprazole 40 mg capsule,delayed 40 mg PO DAILY #90 cap 10/15/19 11/14/19 Rx release alprazolam 0.25 mg PO HS PRN 11/14/19 11/14/19 History Allergies Allergy/AdvReac Type Severity Reaction Status Date / Time rosuvastatin AdvReac Intermediate myalgia Verified 10/09/19 06:54
[2019-11-14] MEDS: NOREPINEPHRINE 8 MG/D5W 250 ML 8 MG/250 ML BAG 9.4 MG IV CONT (02:14)
[2019-11-14 02:39] LABS: Hematocrit 22.8 % (37.0-47.0); Hemoglobin 7.8 g/dL (12.0-15.0); Mean Corpuscular HGB Conc 34.2 g/dl (32-36); Mean Corpuscular Hemoglobin 32.2 pg (26-34); Mean Corpuscular Volume 94.2 fl (80-100); Mean Platelet Volume 11.2 fl (7.4-10.4); Platelet Count Result 74 k/mm3 (150-375); Red Blood Count 2.42 M/mm3 (4.2-5.4); Red Cell Distribution Width 13.8 % (11.5-14.5); White Blood Count 2.3 K/mm3 (4.5-10.0)
[2019-11-14 02:54] LABS: Anion Gap 11.1 mmol/L (7-16); Blood Urea Nitrogen 28 mg/dL (7-17); Carbon Dioxide 22 mmol/L (22-30); Chloride 94 mmol/L (98-107); Estimated CRCL calculation 50 ml/min; Estimated Glomerular Filt Rate 46; Glucose 87 mg/dL (65-105); Magnesium 0.9 mg/dL (1.6-2.3); Potassium 4.1 mmol/L (3.4-5.0); Sodium 123 mmol/L (137-145)
--- NOTE | 2019-11-14 02:55 | ADMIMU ---
This patient, Minnie Denton, was admitted to ICU status, and placed in Intensive Care Unit-9 on 11/14/19 at 0137. Patient/family oriented to hospital policies and general routines including ID bracelet, bed and alarms, visiting hours, pain management, procedures, bathroom and other care routines, personal items, smoking policy, room service/diet, and visiting hours. Valuables list has been completed. Information on how to activate the Rapid Response Team has been discussed. Patient/Family are encouraged to report perceived risks to care and to ask questions if they do not understand what they are told or what they should do.
[2019-11-14 03:36] LABS: Band Neutrophils Percent 4 % (0-6); Large Platelets Present; Lymphocytes Absolute Manual 0.34 K/mm3 (1.1-4.5); Monocytes Absolute Manual 0.46 K/mm3 (0.1-0.90); Monocytes Percent Manual 20 % (3-9); Neutrophils Absolute Manual 1.49 K/mm3 (1.7-7.2); Neutrophils Percent Manual 61 % (46-73); Platelet Estimate Decreased (Adequate); Total Cells Counted 100
[2019-11-14 03:37] LABS: Hypochromasia 1+ (NORMAL)
[2019-11-14] MEDS: MAGNESIUM SULF 2 GM/WATER 50ML 2 GM/50 ML BAG IVPB (04:46)
[2019-11-14 08:12] LABS: Alveolar/Arterial O2 Gradient 102.3 mmHg; Base Excess ABG -3.4 mEq/l (+/-2.0); Fractional Inspired Oxygen 28 %; HCO3 ABG 21.2 mEq/l (22.0-26.0); Oxygen Content ABG 10.9 %vol (16.0-22.0); Oxygen Saturation ABG 88.5 % (95.0-100.0); Oxyhemoglobin 86.1 % THb (90.0-100.0); PO2 ABG 54.9 mmHg (80.0-100.0); PO2 FiO2 Ratio Arterial Blood 1.96 %; pH ABG 7.387 (7.350-7.450)
[2019-11-14 08:13] LABS: Device NASAL CANNULA; Modified Allen's Test Pass; Site Drawn LEFT RADIAL
[2019-11-14] MEDS: FUROSEMIDE INJ 40 MG/4 ML VIAL 20 MG IV PUSH (09:21)
[2019-11-14 10:24] LABS: Anion Gap 10.7 mmol/L (7-16); Blood Urea Nitrogen 21 mg/dL (7-17); Calcium 7.6 mg/dL (8.4-10.2); Carbon Dioxide 23 mmol/L (22-30); Chloride 91 mmol/L (98-107); Estimated CRCL calculation 65 ml/min; Estimated Glomerular Filt Rate > 60; Glucose 107 mg/dL (65-105); Potassium 3.7 mmol/L (3.4-5.0); Sodium 121 mmol/L (137-145)
[2019-11-14 10:36] LABS: Magnesium 1.8 mg/dL (1.6-2.3)
--- NOTE | 2019-11-14 14:37 | WPDCNINT ---
Assessment and Plan Assessment and plan (1) Acute hypoxemic respiratory failure: Code(s): J96.01 - Acute respiratory failure with hypoxia Status: Acute Assessment and Plan: patient presented to the outside hospital with worsening shortness of breath, cough productive of yellow-colored sputum. - Chest x-ray showed retrocardiac infiltrates likely pneumonia - started on azithromycin and ceftriaxone - patient remains on 2 L nasal cannula in the ICU - was tachypneic and sounded congested, chest x-ray this morning showed possible pulmonary edema, was given Lasix 20 mg IV x1 with good urine output and significant improvement in her respiratory status - remains tachycardic, V/Q scan showed intermediate probability for pulmonary embolism, us with [facility] nurse practitioner for Dr. Sylvester, check with Dr. Ravi who is covering for Dr. Sylvester. chad to start Lovenox therapeutic dose, hold for platelets < 50,000. (2) Pulmonary embolism: Code(s): I26.99 - Other pulmonary embolism without acute cor pulmonale Status: Acute Assessment and Plan: V/Q scan showed intermediate probability for pulmonary embolism - discussed with oncology office, chad for therapeutic Lovenox as above - hold Lovenox for platelets < 50,000 - Check lower extremity venous Dopplers (3) Septic shock: Code(s): A41.9 - Sepsis, unspecified organism; R65.21 - Severe sepsis with septic shock Status: Acute Assessment and Plan: patient presented with hypotension, refractory to IV fluids per sepsis protocol, started on Levophed and transferred to the ICU at [facility] from [facility] on 11/13/2019 - lactic acid normalized - patient on Levophed at 1 mcg/min - remains tachycardic, creatinine improved to 1.2 from 1.99 on admission patient has had adequate urine output - (4) Acute renal failure: Qualifiers: Acute renal failure type: unspecified Qualified Code(s): N17.9 - Acute kidney failure, unspecified Code(s): N17.9 - Acute kidney failure, unspecified Status: Acute Assessment and Plan: patient with acute renal failure likely related to hypovolemia, hypotension, septic shock, infection, patient also on lisinopril at home - adequately fluid-resuscitated - creatinine down to 0.9 this morning from 1.99 on admission - urine output has been adequate -, continue to monitor (5) Hyponatremia: Code(s): E87.1 - Hypo-osmolality and hyponatremia Status: Acute Assessment and Plan: hyponatremia likely related to SIADH from lung cancer, could be related to hypovolemia - will continue to monitor (6) Pancytopenia: Code(s): D61.818 - Other pancytopenia Status: Acute Assessment and Plan: most likely secondary to chemotherapy - oncology following the patient, - discussed regarding Neupogen with nurse practitioner for Dr. Sylvester, she will be putting orders for Neupogen - continue to monitor CBC (7) Sinus tachycardia: Code(s): R00.0 - Tachycardia, unspecified Status: Acute Assessment and Plan: patient with sinus tachycardia likely related to PE, could also be related to adrenergic surge - continue therapeutic Lovenox (8) Pneumonia: Qualifiers: Laterality: left Lung location: lower lobe of lung Pneumonia type: due to unspecified organism Qualified Code(s): J18.9 - Pneumonia, unspecified organism Code(s): J18.9 - Pneumonia, unspecified organism Status: Acute Assessment and Plan: chest x-ray showed retrocardiac infiltrates likely secondary to immunosuppression from chemotherapy - continue azithromycin and ceftriaxone - supplemental oxygen (9) Small cell lung cancer: Onset Date: ~09/2019 Code(s): C34.90 - Malignant neoplasm of unspecified part of unspecified bronchus or lung Status: Chronic Assessment and Plan: small-cell lung cancer with ongoing chemotherapy - last chemothe
--- NOTE | 2019-11-14 15:04 | PDONCCN ---
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 She initiated chemotherapy (carbo/atezolizumab/etoposide) on November 02 with concurrent RT starting October 29. She is now admitted to ICU for refractory hypotension that has resolved with Levophed (discontinued). Oncology consult was requested for pancytopenia (WBC 2.3, Hgb 7.8, plt 74,000, ANC 1.5). All histories were obtained from chart as patient felt too fatigued and more dyspneic with conversation. ROS remarkable for SOB, productive cough without hemoptysis, diffuse body pain, generalized weakness. Review of Systems - Review of Systems All systems reviewed & are unremarkable except as noted in HPI and [facility] Medical History: Medical History (Last Reviewed 11/14/19 @ 06:29 by Bradley Askew MD) Asthma CAD (coronary atherosclerotic disease) Catie vaginitis Chronic back pain Chronic GERD COPD (chronic obstructive pulmonary disease) CVA (cerebral vascular accident) x2 Emphysema lung Hernia Hyperlipidemia Hypertension Myocardial infarction Nicotine dependence Obesity (BMI 30-39.9) Sleep apnea Surgical History: Surgical History (Last Reviewed 11/14/19 @ 06:29 by Bradley Askew MD) H/O prior ablation treatment age 33 H/O tubal ligation age 26 History of heart artery stent S/P cardiac cath Family History: Family History (Last Updated 11/14/19 @ 17:03 by CAROLINE Landry) Father History of blood clots Cancer Mother No problems noted. Sibling Cancer Son CAD (coronary artery disease) Other Family history of malignant neoplasm - Social History Social History: Social History (Last Updated 11/14/19 @ 17:06 by CAROLINE Landry) Gender Identity: Gender identity (if verbalized by the patient): Female Alcohol Use: Alcohol intake: current Alcohol use details: Occasionally Substance Use: Substance use type: marijuana, prescription drug Last use: 11/10/19 Others: Spiritual care concerns: Spiritual care concerns comment: Tj Smoking Status: Smoking status: Former smoker Tobacco type: cigarettes Smoking end date: 04/16/18 Smoking Pack-years: Smoking packs per day: 1 Smoking cigarettes per day: 20 Years smoked: 25 Smoking pack-years: 25.00 Meds Home Medications Medication Instructions Recorded Confirmed Type albuterol sulfate 90 mcg/actuation 2 inhalation INHALATION Q4H PRN 09/19/19 11/14/19 Rx aerosol inhaler #18 gm cyclobenzaprine 10 mg tablet 10 mg PO .at bedtime PRN #90 tablet 09/19/19 11/14/19 Rx escitalopram oxalate 20 mg tablet 20 mg PO DAILY #90 tablet 09/19/19 11/14/19 Rx fluticasone fur. 100 mcg-umeclid 1 inhalation INHALATION DAILY #60 09/19/19 11/14/19 Rx 62.5 mcg-vilant 25 mcg each inhalat.powder gabapentin 100 mg capsule 100 mg PO TID #240 cap 09/19/19 11/14/19 Rx lisinopril 40 mg tablet 40 mg PO DAILY #90 tablet 09/19/19 11/14/19 Rx hydrocodone-acetaminophen [[place]] 1 tablet PO Q4H PRN 10/07/19 11/14/19 History metoprolol succinate 100 mg PO BID 10/07/19 11/14/19 History omeprazole 40 mg capsule,delayed 40 mg PO DAILY #90 cap 10/15/19 11/14/19 Rx release alprazolam 0.25 mg PO HS PRN 11/14/19 11/14/19 History Allergies Allergy/AdvReac Type Severity Reaction Status Date / Time rosuvastatin AdvReac Intermediate myalgia Verified 10/09/19 06:54 Results - Labs CBC & Chem 7: 11/14/19 02:29 11/14/19 09:49 Labs: Short CBC 11/14/19 Range/Units 02:29 WBC 2.3 L (4.5-10.0) K/mm3 Hgb 7.8 L D (12.0-15.0) g/dL Hct 22.8 L (37.0-47.0) % Plt Count 74 L D (150-375) k/mm3 BMP 11/14/19 11/14/19 02:29 09:49 Sodium
[2019-11-14] MEDS: CENTRAL LINE FLUSH 10 ML IV PUSH (15:12)
[2019-11-14] MEDS: ENOXAPARIN 80 MG/0.8 ML SYRINGE SUB-Q ×2 (15:48→20:27)
[2019-11-14] MEDS: PANTOPRAZOLE SODIUM IV 40 MG VIAL IV PUSH (20:27)
[2019-11-15] VITALS (19 sets, daily range): BP systolic 95–139; BP diastolic 53–93; PULSE 100–128; RESP 18–30; TEMP 36.6–36.8; O2SAT 97–100
--- NOTE | 2019-11-15 | ECHO_ITS ---
Patient Info Name: Minnie Denton Age: 54 years : 1965 Gender: Female Ht: 65 in Wt: 180 lbs BSA: 1.96 m2 HR: 125 bpm BP: 104 / 63 mmHg Heart Rhythm: Tachycardia Technical Quality: Poor Exam Date: 11/15/2019 12:45 PM Exam Location: [facility] Patient Status: Inpatient Admit Date: 11/14/2019 Staff Ordering Physician: Christopher Lake MD [employer] Goods Tester: Yeni Morrissey RD Attending Provider: Bradley Askew MD Exam Type: CA echo dop color flow w con Study Info Complete two-dimensional, color flow and Doppler transthoracic echocardiogram is performed with contrast to opacify the left ventricle and to improve the deliniation of the left ventricle endocardial borders. Contrast/Agitated Saline Contrast/Ag. Saline: Definity Amount: 3.00 ml Summary 1. Left ventricular chamber dimension is normal. 2. Left ventricular systolic function is normal, estimated at 60-65%. 3. There is mildly increased left ventricular wall thickness. 4. The left ventricular diastolic function is grade I diastolic dysfunction. 5. Right ventricular chamber dimension is mildly enlarged. 6. Right ventricular systolic function is normal. 7. Moderate pulmonary hypertension, estimated pulmonary arterial systolic pressure is 55 mmHg. 8. There is mild tricuspid valve regurgitation. Left Ventricle Left ventricular chamber dimension is normal. Left ventricular systolic function is normal, estimated at 60-65%. There is mildly increased left ventricular wall thickness. The left ventricular diastolic function is grade I diastolic dysfunction. Right Ventricle Right ventricular chamber dimension is mildly enlarged. Right ventricular systolic function is normal. Left Atria Left atrial chamber dimension is mildly enlarged. Right Atria Right atrial chamber dimension is normal. Atrial Septum Intact interatrial septum visualized by color flow imaging. Aortic Valve The aortic valve is trileaflet. There is mild aortic valve sclerosis. There is no aortic valve stenosis. There is trace aortic valve regurgitation. Pulmonic Valve The pulmonic valve is not well visualized. There is no pulmonic valve stenosis. There is trace pulmonic regurgitation. Mitral Valve The mitral valve has normal leaflets. There is no mitral valve stenosis. There is trace mitral valve regurgitation. Tricuspid Valve The tricuspid valve leaflets are normal. There is no significant tricuspid valve stenosis. There is mild tricuspid valve regurgitation. Moderate pulmonary hypertension, estimated pulmonary arterial systolic pressure is 55 mmHg. Pericardium/Pleural The pericardium appears normal. There is no pericardial effusion. Aorta The aortic root size at the sinus of Valsalva is normal. The prox ascending aorta size is normal. Left Ventricular Outflow Tract Name Value Normal LVOT 2D LVOT Diameter 1.92 cm LVOT Doppler LVOT Peak Gradient 6 mmHg LVOT Mean Gradient 3 mmHg LVOT VTI 18.07 cm LVOT VTI/AV
[2019-11-15] MEDS: CENTRAL LINE FLUSH 10 ML IV PUSH ×4 (00:01→21:03)
[2019-11-15 04:13] LABS: Hematocrit 23.6 % (37.0-47.0); Hemoglobin 7.9 g/dL (12.0-15.0); Immature Platelet Fraction Pct 6.9 % (0.9-11.2); Mean Corpuscular HGB Conc 33.5 g/dl (32-36); Mean Corpuscular Hemoglobin 31.2 pg (26-34); Mean Corpuscular Volume 93.3 fl (80-100); Mean Platelet Volume 10.7 fl (7.4-10.4); Platelet Count Result 87 k/mm3 (150-375); Red Blood Count 2.53 M/mm3 (4.2-5.4); Red Cell Distribution Width 13.7 % (11.5-14.5); White Blood Count 5.3 K/mm3 (4.5-10.0)
[2019-11-15 04:31] LABS: Alanine Aminotransferase 13 U/L (4-35); Albumin Level 2.6 g/dL (3.5-5.1); Alkaline Phosphatase 150 U/L (38-126); Aspartate Amino Transferase 26 U/L (14-36); Bilirubin,Total 0.3 mg/dL (0.2-1.3); Blood Urea Nitrogen 17 mg/dL (7-17); Calcium 7.4 mg/dL (8.4-10.2); Carbon Dioxide 23 mmol/L (22-30); Chloride 91 mmol/L (98-107); Estimated CRCL calculation 95 ml/min; Estimated Glomerular Filt Rate > 60; Glucose 121 mg/dL (65-105); Magnesium 1.5 mg/dL (1.6-2.3); Phosphorus 1.9 mg/dL (2.5-4.5); Sodium 122 mmol/L (137-145)
[2019-11-15] MEDS: KETOROLAC 30 MG/ML VIAL (*BKC) IV PUSH (05:23)
[2019-11-15 06:18] LABS: Band Neutrophils Percent 3 % (0-6); Eosinophils Absolute Manual 0.05 K/mm3 (0.02-0.5); Eosinophils Percent Manual 1 % (0-4); Lymphocytes Absolute Manual 0.63 K/mm3 (1.1-4.5); Monocytes Absolute Manual 0.47 K/mm3 (0.1-0.90); Monocytes Percent Manual 9 % (3-9); Neutrophils Absolute Manual 4.13 K/mm3 (1.7-7.2); Neutrophils Percent Manual 75 % (46-73); Total Cells Counted 100
[2019-11-15 06:19] LABS: Large Platelets Present; Platelet Estimate Decreased (Adequate)
[2019-11-15] MEDS: PANTOPRAZOLE SODIUM IV 40 MG VIAL IV PUSH (07:50)
[2019-11-15] MEDS: FILGRASTIM 480 MCG/1.6 ML VIAL 420 MCG SUB-Q (07:50)
[2019-11-15] MEDS: ENOXAPARIN 80 MG/0.8 ML SYRINGE SUB-Q ×2 (07:50→20:58)
--- NOTE | 2019-11-15 12:04 | WPDINTPN ---
Progress Note: A&P Assessment and Plan (1) Acute hypoxemic respiratory failure: Code(s): J96.01 - Acute respiratory failure with hypoxia Status: Inactive Assessment and Plan: patient presented to the outside hospital with worsening shortness of breath, cough productive of yellow-colored sputum. - Chest x-ray showed retrocardiac and left lower low pneumonia. - She has been on chemotherapy and would like to broaden the antibiotic coverage. I will switch ceftriaxone to cefepime. Will continue azithromycin. Vancomycin has been added by the primary team as well. - patient remains on 2 L nasal cannula in the ICU With oxygen saturation in mid 90s. - remains tachycardic, V/Q scan showed intermediate probability for pulmonary embolism. Hematology service for Lovenox with her having pancytopenia. They were okay to start is non give the critical found remains above 50,000. hold for platelets < 50,000. no signs of bleeding at this time. (2) Pulmonary embolism: Code(s): I26.99 - Other pulmonary embolism without acute cor pulmonale Status: Acute Assessment and Plan: V/Q scan showed intermediate probability for pulmonary embolism - discussed with oncology office, okay for therapeutic Lovenox as above - hold Lovenox for platelets < 50,000 - Lower extremity Doppler has been negative for DVT. Will get an echocardiogram to look for possible right ventricular strain. (3) Septic shock: Code(s): A41.9 - Sepsis, unspecified organism; R65.21 - Severe sepsis with septic shock Status: Acute Assessment and Plan: patient presented with hypotension, refractory to IV fluids per sepsis protocol, started on Levophed and transferred to the ICU at [facility] from [facility] on 11/13/2019 - lactic acid normalized - She has been weaned down off from Levophed since yesterday around 10:00 a.m.. - remains tachycardic, creatinine improved to 1.2 from 1.99 on admission patient has had adequate urine output - (4) Acute renal failure: Qualifiers: Acute renal failure type: unspecified Qualified Code(s): N17.9 - Acute kidney failure, unspecified Code(s): N17.9 - Acute kidney failure, unspecified Status: Acute Assessment and Plan: patient with acute renal failure likely related to hypovolemia, hypotension, septic shock, infection, patient also on lisinopril at home - adequately fluid-resuscitated - creatinine down to 0.9 this morning from 1.99 on admission - urine output has been adequate. She had a negative fluid balance of 800 cc today. - continue to monitor (5) Hyponatremia: Code(s): E87.1 - Hypo-osmolality and hyponatremia Status: Acute Assessment and Plan: hyponatremia likely related to SIADH from lung cancer, could be related to hypovolemia - will continue to monitor (6) Pancytopenia: Code(s): D61.818 - Other pancytopenia Status: Acute Assessment and Plan: most likely secondary to chemotherapy - oncology following the patient, - She has been started on Neupogen by hematology/oncology service. - continue to monitor CBC (7) Sinus tachycardia: Code(s): R00.0 - Tachycardia, unspecified Status: Acute Assessment and Plan: patient with sinus tachycardia likely related to PE, could also be related to adrenergic surge - continue therapeutic Lovenox Will resume metoprolol which is her home medication but will started at high off the does with 50 mg twice a day. (8) Pneumonia: Qualifiers: Laterality: left Lung location: lower lobe of lung Pneumonia type: due to unspecified organism Qualified Code(s): J18.9 - Pneumonia, unspecified organism Code(s): J18.9 - Pneumonia, unspecified organism Status: Inactive Assessment and Plan: chest x-ray showed retrocardiac as well as left lower lobe infiltrates likely secondary to immunosuppression from chemotherapy -
[2019-11-15] MEDS: GABAPENTIN 100 MG CAPSULE PO ×2 (14:40→16:49)
--- NOTE | 2019-11-15 15:13 | PC.NURSE ---
Patient transferred to room 347, report called to Rachelle, all questions answered and all belongings sent with patient
--- NOTE | 2019-11-15 16:02 | PM.IMPN ---
Progress Note: A&P Assessment and Plan (1) Septic shock: Code(s): A41.9 - Sepsis, unspecified organism; R65.21 - Severe sepsis with septic shock Status: Acute Assessment and Plan: . The patient has been started on antibiotics at [facility] and broaden coverage here . Blood cultures pending and urine culture. . on pressors for very short period time but has maintained adequate blood pressure last 12 hours (2) Pneumonia: Qualifiers: Laterality: left Lung location: lower lobe of lung Pneumonia type: due to unspecified organism Qualified Code(s): J18.9 - Pneumonia, unspecified organism Code(s): J18.9 - Pneumonia, unspecified organism Status: Inactive Assessment and Plan: Continue IV antibiotics for possible pneumonia. Bronchodilators. Oxygen supplementation as needed to maintain O2 sats >92%. RT assess and treat. cultures pending (3) Sinus tachycardia: Code(s): R00.0 - Tachycardia, unspecified Status: Acute Assessment and Plan: secondary to septic shock. venous Dopplers negative. (4) Hyponatremia: Code(s): E87.1 - Hypo-osmolality and hyponatremia Status: Acute Assessment and Plan: Likely SIADH from Small cell lung cancer. Fluid restricted diet. Light IV hydration w/ NS and monitor serum sodium closely. (5) Acute renal failure: Qualifiers: Acute renal failure type: unspecified Qualified Code(s): N17.9 - Acute kidney failure, unspecified Code(s): N17.9 - Acute kidney failure, unspecified Status: Acute Assessment and Plan: Likely secondary to sepsis. Light IV hydration and creatinine has fallen from 1.9-0.6 (6) Pancytopenia: Code(s): D61.818 - Other pancytopenia Status: Acute Assessment and Plan: likely chemotherapy induced. WBC increased to 5.3 with 75% segs and platelets up to 87 K with hemoglobin 7.9 (7) Small cell lung cancer: Onset Date: ~09/2019 Code(s): C34.90 - Malignant neoplasm of unspecified part of unspecified bronchus or lung Status: Chronic Assessment and Plan: Continue heme/onc recommendations. (8) Chronic GERD: Code(s): K21.9 - Gastro-esophageal reflux disease without esophagitis Status: Chronic Assessment and Plan: Continue PPI therapy. (9) COPD (chronic obstructive pulmonary disease): Qualifiers: COPD type: unspecified COPD Qualified Code(s): J44.9 - Chronic obstructive pulmonary disease, unspecified Code(s): J44.9 - Chronic obstructive pulmonary disease, unspecified Status: Chronic Assessment and Plan: Continue bronchodilators. (10) Hypertension: Qualifiers: Hypertension type: unspecified Qualified Code(s): I10 - Essential (primary) hypertension Code(s): I10 - Essential (primary) hypertension Status: Chronic Assessment and Plan: blood pressure rebounding and is tachycardic so beta-tesha restarted and her lesser dose of 50 b.i.d. and continue to hold Gerard. (11) CAD (coronary atherosclerotic disease): Qualifiers: Coronary Disease-Associated Artery/Lesion type: unspecified vessel or lesion type [place] vs. transplanted heart: unspecified whether [place] or transplanted heart Associated angina: without angina Qualified Code(s): I25.10 - Atherosclerotic heart disease of [place] coronary artery without angina pectoris Code(s): I25.10 - Atherosclerotic heart disease of [place] coronary artery without angina pectoris Status: Chronic Assessment and Plan: continue beta-tesha (12) DVT prophylaxis: Code(s): Z29.9 - Encounter for prophylactic measures, unspecified Status: Acute Assessment and Plan: mechanical with thrombocytopenia Subjective Date/time seen: 11/15/19 16:02 Interval history: Date of visit 11/14. 54-year-old hypertensive white female with COPD receiving ongoing chemotherapy for s
[2019-11-15] MEDS: SODIUM CHLORIDE 0.9% IV 1,000 ML 50 ML IV CONT (16:28)
[2019-11-15] MEDS: MAGNESIUM SULF 2 GM/WATER 50ML 2 GM/50 ML BAG IVPB (16:39)
[2019-11-15] MEDS: POTASSIUM CHLORIDE 20 MEQ TABLET.ER 40 MEQ PO (16:49)
[2019-11-15] MEDS: POTASSIUM PHOS,M-BASIC-D-BASIC 20 MMOL in SODIUM CHLORIDE 0.9% IV 250 ML 62.5 MMOL IVPB (17:33)
--- NOTE | 2019-11-15 17:53 | PC.NURSE ---
This patient, Minnie Denton, was received from [ICU ] on 11/15/19 at 1500. Personal belongings list checked and signed. Patient/family oriented to unit policies and routines
[2019-11-15] MEDS: METOPROLOL SUCCINATE EXT REL 50 MG TABCR PO (20:58)
[2019-11-16] VITALS (19 sets, daily range): BP systolic 110–129; BP diastolic 48–71; PULSE 94–106; RESP 16–20; TEMP 36.1–36.6; O2SAT 94–100
[2019-11-16] MEDS: CENTRAL LINE FLUSH 10 ML IV PUSH ×3 (05:33→20:26)
[2019-11-16 06:40] LABS: Hematocrit 23.1 % (37.0-47.0); Hemoglobin 7.9 g/dL (12.0-15.0); Mean Corpuscular HGB Conc 34.2 g/dl (32-36); Mean Corpuscular Volume 93.5 fl (80-100); Mean Platelet Volume 10.6 fl (7.4-10.4); Platelet Count Result 108 k/mm3 (150-375); Red Blood Count 2.47 M/mm3 (4.2-5.4); Red Cell Distribution Width 14.2 % (11.5-14.5); White Blood Count 12.3 K/mm3 (4.5-10.0)
[2019-11-16 06:53] LABS: Anion Gap 10.5 mmol/L (7-16); Blood Urea Nitrogen 13 mg/dL (7-17); Calcium 7.3 mg/dL (8.4-10.2); Carbon Dioxide 22 mmol/L (22-30); Chloride 94 mmol/L (98-107); Estimated CRCL calculation 84 ml/min; Estimated Glomerular Filt Rate > 60; Glucose 101 mg/dL (65-105); Magnesium 1.9 mg/dL (1.6-2.3); Phosphorus 1.9 mg/dL (2.5-4.5); Potassium 3.5 mmol/L (3.4-5.0); Sodium 123 mmol/L (137-145)
[2019-11-16] MEDS: POTASSIUM PHOS,M-BASIC-D-BASIC 20 MMOL in SODIUM CHLORIDE 0.9% IV 250 ML 62.5 MMOL IVPB ×2 (07:48→13:02)
[2019-11-16] MEDS: ENOXAPARIN 80 MG/0.8 ML SYRINGE SUB-Q ×2 (08:37→20:25)
[2019-11-16] MEDS: POTASSIUM CHLORIDE 20 MEQ TABLET.ER 40 MEQ PO (08:37)
[2019-11-16] MEDS: FOLIC ACID 1 MG TABLET PO (08:38)
[2019-11-16] MEDS: GABAPENTIN 100 MG CAPSULE PO ×3 (08:38→17:21)
[2019-11-16] MEDS: PANTOPRAZOLE 40 MG TABLET PO ×2 (08:38→20:25)
[2019-11-16] MEDS: ESCITALOPRAM OXALATE 10 MG TABLET 20 MG PO (08:38)
[2019-11-16] MEDS: THIAMINE HCL 100 MG TABLET PO (08:39)
[2019-11-16] MEDS: METOPROLOL SUCCINATE EXT REL 50 MG TABCR PO (08:39)
[2019-11-16] MEDS: FILGRASTIM 480 MCG/1.6 ML VIAL 420 MCG SUB-Q (09:40)
[2019-11-16] MEDS: FLUTICASONE/SALMETEROL 45-21 MCG INHALER 1 PUFF 2 PUFF INHALATION ×2 (12:08→21:05)
[2019-11-16] MEDS: SODIUM CHLORIDE 0.9% IV 1,000 ML 50 ML IV CONT (13:01)
--- NOTE | 2019-11-16 15:07 | PM.IMPN ---
Progress Note: A&P Assessment and Plan (1) Septic shock: Code(s): A41.9 - Sepsis, unspecified organism; R65.21 - Severe sepsis with septic shock Status: Acute Assessment and Plan: . The patient has been started on antibiotics at [facility] and broaden coverage here . Blood cultures pending and urine culture. . on pressors for very short period time but has maintained adequate blood pressure last 12 hours (2) Pneumonia: Qualifiers: Laterality: left Lung location: lower lobe of lung Pneumonia type: due to unspecified organism Qualified Code(s): J18.9 - Pneumonia, unspecified organism Code(s): J18.9 - Pneumonia, unspecified organism Status: Inactive Assessment and Plan: Continue IV antibiotics for possible pneumonia. Bronchodilators. Oxygen supplementation as needed to maintain O2 sats >92%. RT assess and treat. cultures so far neg (3) Sinus tachycardia: Code(s): R00.0 - Tachycardia, unspecified Status: Acute Assessment and Plan: secondary to septic shock. venous Dopplers negative. (4) Hyponatremia: Code(s): E87.1 - Hypo-osmolality and hyponatremia Status: Acute Assessment and Plan: Likely SIADH from Small cell lung cancer. Fluid restricted diet. Light IV hydration w/ NS and monitor serum sodium at 123 today (5) Acute renal failure: Qualifiers: Acute renal failure type: unspecified Qualified Code(s): N17.9 - Acute kidney failure, unspecified Code(s): N17.9 - Acute kidney failure, unspecified Status: Acute Assessment and Plan: Likely secondary to sepsis. Light IV hydration and creatinine has fallen from 1.9-0.7 (6) Pancytopenia: Code(s): D61.818 - Other pancytopenia Status: Acute Assessment and Plan: likely chemotherapy induced. WBC increased to 12.3 and platelets up to 108 K with hemoglobin 7.9 after 2 doses of nupagem (7) Small cell lung cancer: Onset Date: ~09/2019 Code(s): C34.90 - Malignant neoplasm of unspecified part of unspecified bronchus or lung Status: Chronic Assessment and Plan: Continue heme/onc recommendations. (8) Chronic GERD: Code(s): K21.9 - Gastro-esophageal reflux disease without esophagitis Status: Chronic Assessment and Plan: Continue PPI therapy. (9) COPD (chronic obstructive pulmonary disease): Qualifiers: COPD type: unspecified COPD Qualified Code(s): J44.9 - Chronic obstructive pulmonary disease, unspecified Code(s): J44.9 - Chronic obstructive pulmonary disease, unspecified Status: Chronic Assessment and Plan: Continue bronchodilators. (10) Hypertension: Qualifiers: Hypertension type: unspecified Qualified Code(s): I10 - Essential (primary) hypertension Code(s): I10 - Essential (primary) hypertension Status: Chronic Assessment and Plan: blood pressure rebounding and is tachycardic so beta-tesha restarted and her lesser dose of 50 b.i.d. and will increase back to 100bid and continue to hold Gerard. (11) CAD (coronary atherosclerotic disease): Qualifiers: Coronary Disease-Associated Artery/Lesion type: unspecified vessel or lesion type [place] vs. transplanted heart: unspecified whether [place] or transplanted heart Associated angina: without angina Qualified Code(s): I25.10 - Atherosclerotic heart disease of [place] coronary artery without angina pectoris Code(s): I25.10 - Atherosclerotic heart disease of [place] coronary artery without angina pectoris Status: Chronic Assessment and Plan: continue beta-tesha (12) DVT prophylaxis: Code(s): Z29.9 - Encounter for prophylactic measures, unspecified Status: Acute Assessment and Plan: mechanical with thrombocytopenia (13) Pulmonary embolism: Code(s): I26.99 - Other pulmonary embolism without acute cor pulmonale Statu
[2019-11-16] MEDS: METOPROLOL SUCCINATE EXT REL 100 MG TABCR PO (20:26)
[2019-11-17] VITALS (14 sets, daily range): BP systolic 109–131; BP diastolic 56–62; PULSE 72–100; RESP 18–22; TEMP 36.3–37.2; O2SAT 92–100
[2019-11-17 01:59] LABS: Vancomycin Trough 26.6 ug/mL (10.0-20.0)
[2019-11-17] MEDS: CENTRAL LINE FLUSH 10 ML IV PUSH ×2 (05:29→20:53)
[2019-11-17 06:04] LABS: Albumin Level 2.5 g/dL (3.5-5.1); Anion Gap 8.5 mmol/L (7-16); Basophils Percent Auto 0.1 % (0.2-1.2); Blood Urea Nitrogen 9 mg/dL (7-17); Calcium 7.7 mg/dL (8.4-10.2); Carbon Dioxide 24 mmol/L (22-30); Chloride 96 mmol/L (98-107); Estimated CRCL calculation 98 ml/min; Estimated Glomerular Filt Rate > 60; Glucose 85 mg/dL (65-105); Hematocrit 26.3 % (37.0-47.0); Hemoglobin 8.7 g/dL (12.0-15.0); Immature Granulocyte Absolute 1.43 K/mm3 (0.00-0.031); Immature Granulocyte Percent A 6.5 % (0-0.5); Lymphocytes Absolute Auto 1.25 K/mm3 (0.9-3.2); Lymphocytes Percent Auto 5.7 % (18.3-44.2); Magnesium 1.4 mg/dL (1.6-2.3); Mean Corpuscular HGB Conc 33.1 g/dl (32-36); Mean Corpuscular Hemoglobin 31.3 pg (26-34); Mean Corpuscular Volume 94.6 fl (80-100); Mean Platelet Volume 10.7 fl (7.4-10.4); Monocytes Absolute Auto 5.2 K/mm3 (0.1-0.6); Monocytes Percent Auto 23.4 % (2.6-8.5); Neutrophils Absolute Auto 14.2 K/mm3 (1.3-6.7); Neutrophils Percent Auto 64.3 % (45.5-73.1); Phosphorus 2.4 mg/dL (2.5-4.5); Platelet Count Result 182 k/mm3 (150-375); Potassium 4.5 mmol/L (3.4-5.0); Red Blood Count 2.78 M/mm3 (4.2-5.4); Red Cell Distribution Width 14.4 % (11.5-14.5); Sodium 124 mmol/L (137-145); White Blood Count 22.1 K/mm3 (4.5-10.0)
[2019-11-17] MEDS: MAGNESIUM SULF 2 GM/WATER 50ML 2 GM/50 ML BAG IVPB (08:18)
[2019-11-17] MEDS: THIAMINE HCL 100 MG TABLET PO (08:22)
[2019-11-17] MEDS: GABAPENTIN 100 MG CAPSULE PO ×3 (08:22→17:45)
[2019-11-17] MEDS: FOLIC ACID 1 MG TABLET PO (08:22)
[2019-11-17] MEDS: ESCITALOPRAM OXALATE 10 MG TABLET 20 MG PO (08:22)
[2019-11-17] MEDS: ENOXAPARIN 80 MG/0.8 ML SYRINGE SUB-Q ×2 (08:22→20:53)
[2019-11-17] MEDS: PANTOPRAZOLE 40 MG TABLET PO ×2 (08:22→20:53)
[2019-11-17] MEDS: METOPROLOL SUCCINATE EXT REL 100 MG TABCR PO ×2 (08:22→20:53)
[2019-11-17] MEDS: FILGRASTIM 480 MCG/1.6 ML VIAL 420 MCG SUB-Q (08:25)
[2019-11-17] MEDS: ALTEPLASE 2 MG VIAL (CATHFLO) IV PUSH ×2 (09:27→15:20)
[2019-11-17] MEDS: FLUTICASONE/SALMETEROL 45-21 MCG INHALER 1 PUFF 2 PUFF INHALATION ×2 (09:27→19:41)
[2019-11-17] MEDS: POTASSIUM PHOS,M-BASIC-D-BASIC 20 MMOL in SODIUM CHLORIDE 0.9% IV 250 ML 62.5 MMOL IVPB (10:28)
--- NOTE | 2019-11-17 10:42 | PCDIET ---
Physician Consult for ETOH Abuse. Patient currently on a regular diet, intake for bkfast 100% of meal. Folic Acid and Thiamine started. Weight per EMR 10/09/19: 80.1 kg current weight: 89.7 kg. BMI: 32.9 obese. No further nutritional interventions needed.
[2019-11-17 11:32] LABS: Glucose Point of Care 90 (65-105)
--- NOTE | 2019-11-17 12:42 | PCOTNOTE ---
Attempted to see patient for skilled OT, however, patient became tearful, agitated, shaking her head, and refusing to participate in any task therapist suggested. Patient's RN notified of patient's change in demeanor. RN aware. Will attempt again to see for OT if time permits.
--- NOTE | 2019-11-17 16:29 | PM.IMPN ---
Progress Note: A&P Assessment and Plan (1) Septic shock: Code(s): A41.9 - Sepsis, unspecified organism; R65.21 - Severe sepsis with septic shock Status: Acute Assessment and Plan: . The patient has been started on antibiotics at [facility] and broaden coverage here . Blood cultures neg and urine culture.neg . on pressors for very short period time but has maintained adequate blood pressure last 48 hours (2) Pneumonia: Qualifiers: Laterality: left Lung location: lower lobe of lung Pneumonia type: due to unspecified organism Qualified Code(s): J18.9 - Pneumonia, unspecified organism Code(s): J18.9 - Pneumonia, unspecified organism Status: Inactive Assessment and Plan: Continue IV antibiotics(D#4) for possible pneumonia. Bronchodilators. Oxygen supplementation as needed to maintain O2 sats >92%. RT assess and treat. cultures so far neg (3) Sinus tachycardia: Code(s): R00.0 - Tachycardia, unspecified Status: Acute Assessment and Plan: secondary to septic shock. venous Dopplers negative. and back on beta tesha now with decreased pulse (4) Hyponatremia: Code(s): E87.1 - Hypo-osmolality and hyponatremia Status: Acute Assessment and Plan: Likely SIADH from Small cell lung cancer. Fluid restricted diet. sodium at 124 today (5) Acute renal failure: Qualifiers: Acute renal failure type: unspecified Qualified Code(s): N17.9 - Acute kidney failure, unspecified Code(s): N17.9 - Acute kidney failure, unspecified Status: Acute Assessment and Plan: Likely secondary to sepsis. Light IV hydration and creatinine has fallen from 1.9 to 0.6 (6) Pancytopenia: Code(s): D61.818 - Other pancytopenia Status: Acute Assessment and Plan: likely chemotherapy induced. WBC increased to 22 and platelets up to 182 K with hemoglobin 8.7 after 3 doses of nupagem (7) Small cell lung cancer: Onset Date: ~09/2019 Code(s): C34.90 - Malignant neoplasm of unspecified part of unspecified bronchus or lung Status: Chronic Assessment and Plan: Continue heme/onc recommendations. (8) Chronic GERD: Code(s): K21.9 - Gastro-esophageal reflux disease without esophagitis Status: Chronic Assessment and Plan: Continue PPI therapy. (9) COPD (chronic obstructive pulmonary disease): Qualifiers: COPD type: unspecified COPD Qualified Code(s): J44.9 - Chronic obstructive pulmonary disease, unspecified Code(s): J44.9 - Chronic obstructive pulmonary disease, unspecified Status: Chronic Assessment and Plan: Continue bronchodilators. (10) Hypertension: Qualifiers: Hypertension type: unspecified Qualified Code(s): I10 - Essential (primary) hypertension Code(s): I10 - Essential (primary) hypertension Status: Chronic Assessment and Plan: blood pressure rebounding and beta-tesha restarted 100bid and continue to hold Gerard. (11) CAD (coronary atherosclerotic disease): Qualifiers: Associated angina: without angina Coronary Disease-Associated Artery/Lesion type: unspecified vessel or lesion type [place] vs. transplanted heart: unspecified whether [place] or transplanted heart Qualified Code(s): I25.10 - Atherosclerotic heart disease of [place] coronary artery without angina pectoris Code(s): I25.10 - Atherosclerotic heart disease of [place] coronary artery without angina pectoris Status: Chronic Assessment and Plan: continue beta-tesha (12) DVT prophylaxis: Code(s): Z29.9 - Encounter for prophylactic measures, unspecified Status: Acute Assessment and Plan: full dose lovenox (13) Pulmonary embolism: Code(s): I26.99 - Other pulmonary embolism without acute cor pulmonale Status: Acute Assessment and Plan: V/Q intermediate probability with nega
[2019-11-17] MEDS: HEPARIN SOD FLUSH 500 UNITS/5 ML SYRINGE IV PUSH (22:58)
[2019-11-18] VITALS (12 sets, daily range): BP systolic 123–132; BP diastolic 56–85; PULSE 84–106; RESP 14–22; TEMP 36.2–36.9; O2SAT 90–100
[2019-11-18] MEDS: SODIUM CHLORIDE 0.9% IV 1,000 ML 50 ML IV CONT (01:06)
[2019-11-18] MEDS: CENTRAL LINE FLUSH 10 ML IV PUSH ×2 (05:44→20:54)
[2019-11-18] MEDS: CENTRAL LINE FLUSH 20 ML IV PUSH (05:44)
[2019-11-18 06:04] LABS: Basophils Absolute Auto 0.1 K/mm3 (0.0-0.1); Basophils Percent Auto 0.2 % (0.2-1.2); Hematocrit 25.3 % (37.0-47.0); Hemoglobin 8.4 g/dL (12.0-15.0); Immature Granulocyte Absolute 4.35 K/mm3 (0.00-0.031); Immature Granulocyte Percent A 10.6 % (0-0.5); Lymphocytes Absolute Auto 2.14 K/mm3 (0.9-3.2); Lymphocytes Percent Auto 5.2 % (18.3-44.2); Mean Corpuscular HGB Conc 33.2 g/dl (32-36); Mean Corpuscular Hemoglobin 31.1 pg (26-34); Mean Corpuscular Volume 93.7 fl (80-100); Mean Platelet Volume 10.1 fl (7.4-10.4); Monocytes Absolute Auto 9.2 K/mm3 (0.1-0.6); Monocytes Percent Auto 22.4 % (2.6-8.5); Neutrophils Absolute Auto 25.3 K/mm3 (1.3-6.7); Neutrophils Percent Auto 61.6 % (45.5-73.1); Platelet Count Result 245 k/mm3 (150-375); Red Cell Distribution Width 14.4 % (11.5-14.5); White Blood Count 41.1 K/mm3 (4.5-10.0)
[2019-11-18 06:23] LABS: Albumin Level 2.6 g/dL (3.5-5.1); Anion Gap 10.4 mmol/L (7-16); Blood Urea Nitrogen 8 mg/dL (7-17); Calcium 7.8 mg/dL (8.4-10.2); Carbon Dioxide 26 mmol/L (22-30); Chloride 95 mmol/L (98-107); Estimated CRCL calculation 98 ml/min; Estimated Glomerular Filt Rate > 60; Glucose 105 mg/dL (65-105); Magnesium 1.3 mg/dL (1.6-2.3); Phosphorus 2.7 mg/dL (2.5-4.5); Potassium 4.4 mmol/L (3.4-5.0); Sodium 127 mmol/L (137-145)
[2019-11-18 08:10] LABS: CRP 19.4 mg/dL (<1.0)
[2019-11-18] MEDS: ENOXAPARIN 80 MG/0.8 ML SYRINGE SUB-Q ×2 (08:57→20:41)
[2019-11-18] MEDS: FLUTICASONE/SALMETEROL 45-21 MCG INHALER 1 PUFF 2 PUFF INHALATION ×2 (08:57→21:37)
[2019-11-18] MEDS: METOPROLOL SUCCINATE EXT REL 100 MG TABCR PO ×2 (08:58→20:42)
[2019-11-18] MEDS: PANTOPRAZOLE 40 MG TABLET PO ×2 (08:58→20:42)
[2019-11-18] MEDS: ESCITALOPRAM OXALATE 10 MG TABLET 20 MG PO (08:58)
[2019-11-18] MEDS: FOLIC ACID 1 MG TABLET PO (08:58)
[2019-11-18] MEDS: GABAPENTIN 100 MG CAPSULE PO ×3 (08:58→17:31)
[2019-11-18] MEDS: THIAMINE HCL 100 MG TABLET PO (08:58)
[2019-11-18] MEDS: MAGNESIUM SULF 2 GM/WATER 50ML 2 GM/50 ML BAG IVPB (09:00)
--- NOTE | 2019-11-18 17:32 | PM.IMPN ---
Progress Note: A&P Assessment and Plan (1) Septic shock: Code(s): A41.9 - Sepsis, unspecified organism; R65.21 - Severe sepsis with septic shock Status: Acute Assessment and Plan: ------Due to PNA. Pt was on pressors fora short time but responsded well and bp has now improved. Will continue ceftriaxone, vanc and azithromycin. (2) Pneumonia: Qualifiers: Laterality: left Lung location: lower lobe of lung Pneumonia type: due to unspecified organism Qualified Code(s): J18.9 - Pneumonia, unspecified organism Code(s): J18.9 - Pneumonia, unspecified organism Status: Inactive Assessment and Plan: ------Continue IV antibiotics(D#5) for PNA. Continue Bronchodilators and supplemental o2. Sputum culture has light growth of yeast, like mouth contaminate. (3) Sinus tachycardia: Code(s): R00.0 - Tachycardia, unspecified Status: Acute Assessment and Plan: -----secondary to septic shock and beta tesha withdraw. Pt also has PE. Echo does not show RV failure but does show mod pulm htn. (4) Hyponatremia: Code(s): E87.1 - Hypo-osmolality and hyponatremia Status: Acute Assessment and Plan: ------Likely SIADH from Small cell lung cancer. Fluid restricted diet. sodium improved to 127 today. (5) Acute renal failure: Qualifiers: Acute renal failure type: unspecified Qualified Code(s): N17.9 - Acute kidney failure, unspecified Code(s): N17.9 - Acute kidney failure, unspecified Status: Acute Assessment and Plan: -----Resolved. Cr improved to 0.6 today. (6) Pancytopenia: Code(s): D61.818 - Other pancytopenia Status: Acute Assessment and Plan: likely chemotherapy induced. WBC increased significantly to 44,000 today likely d/t neupogen which has been stopped. Will reassess tomorrow. I do not think this reflects worsening infection at this time as her vitals are stable but wily monitor closely. (7) Small cell lung cancer: Onset Date: ~09/2019 Code(s): C34.90 - Malignant neoplasm of unspecified part of unspecified bronchus or lung Status: Chronic Assessment and Plan: -----Continue heme/onc recommendations. (8) Chronic GERD: Code(s): K21.9 - Gastro-esophageal reflux disease without esophagitis Status: Chronic Assessment and Plan: -------Continue PPI therapy. (9) COPD (chronic obstructive pulmonary disease): Qualifiers: COPD type: unspecified COPD Qualified Code(s): J44.9 - Chronic obstructive pulmonary disease, unspecified Code(s): J44.9 - Chronic obstructive pulmonary disease, unspecified Status: Chronic Assessment and Plan: -----Continue bronchodilators. (10) Hypertension: Qualifiers: Hypertension type: unspecified Qualified Code(s): I10 - Essential (primary) hypertension Code(s): I10 - Essential (primary) hypertension Status: Chronic Assessment and Plan: -----Improved today 132/56. Continue beta tesha. (11) CAD (coronary atherosclerotic disease): Qualifiers: Coronary Disease-Associated Artery/Lesion type: unspecified vessel or lesion type [place] vs. transplanted heart: unspecified whether [place] or transplanted heart Associated angina: without angina Qualified Code(s): I25.10 - Atherosclerotic heart disease of [place] coronary artery without angina pectoris Code(s): I25.10 - Atherosclerotic heart disease of [place] coronary artery without angina pectoris Status: Chronic Assessment and Plan: -----No CP or signs of ACS at this time. (12) DVT prophylaxis: Code(s): Z29.9 - Encounter for prophylactic measures, unspecified Status: Acute Assessment and Plan: full dose lovenox (13) Pulmonary embolism: Code(s): I26.99 - Other pulmonary embolism without acute cor pulmonale
[2019-11-18 18:18] LABS: Hematocrit 24.1 % (37.0-47.0); Hemoglobin 7.9 g/dL (12.0-15.0)
[2019-11-19] VITALS (15 sets, daily range): BP systolic 126–130; BP diastolic 61–64; PULSE 70–96; RESP 14–20; TEMP 36.2–36.8; O2SAT 94–100
[2019-11-19] MEDS: SODIUM CHLORIDE 0.9% IV 1,000 ML 50 ML IV CONT (01:10)
[2019-11-19] MEDS: CENTRAL LINE FLUSH 20 ML IV PUSH (05:30)
[2019-11-19] MEDS: CENTRAL LINE FLUSH 10 ML IV PUSH ×3 (05:30→21:15)
[2019-11-19 06:01] LABS: Hemoglobin 7.9 g/dL (12.0-15.0); Mean Corpuscular HGB Conc 32.9 g/dl (32-36); Mean Corpuscular Hemoglobin 31.3 pg (26-34); Mean Corpuscular Volume 95.2 fl (80-100); Mean Platelet Volume 10.5 fl (7.4-10.4); Platelet Count Result 272 k/mm3 (150-375); Red Blood Count 2.52 M/mm3 (4.2-5.4); Red Cell Distribution Width 14.7 % (11.5-14.5); White Blood Count 37.7 K/mm3 (4.5-10.0)
[2019-11-19 06:11] LABS: Anion Gap 8.1 mmol/L (7-16); Blood Urea Nitrogen 6 mg/dL (7-17); Calcium 7.6 mg/dL (8.4-10.2); Carbon Dioxide 26 mmol/L (22-30); Chloride 97 mmol/L (98-107); Estimated CRCL calculation 97 ml/min; Estimated Glomerular Filt Rate > 60; Glucose 94 mg/dL (65-105); Magnesium 1.5 mg/dL (1.6-2.3); Potassium 4.1 mmol/L (3.4-5.0); Sodium 127 mmol/L (137-145)
[2019-11-19] MEDS: FLUTICASONE/SALMETEROL 45-21 MCG INHALER 1 PUFF 2 PUFF INHALATION ×2 (07:44→20:24)
[2019-11-19] MEDS: GABAPENTIN 100 MG CAPSULE PO ×3 (08:51→17:09)
[2019-11-19] MEDS: THIAMINE HCL 100 MG TABLET PO (08:51)
[2019-11-19] MEDS: PANTOPRAZOLE 40 MG TABLET PO ×2 (08:51→21:14)
[2019-11-19] MEDS: FOLIC ACID 1 MG TABLET PO (08:51)
[2019-11-19] MEDS: ENOXAPARIN 80 MG/0.8 ML SYRINGE SUB-Q (08:51)
[2019-11-19] MEDS: ESCITALOPRAM OXALATE 10 MG TABLET 20 MG PO (08:51)
[2019-11-19] MEDS: METOPROLOL SUCCINATE EXT REL 100 MG TABCR PO ×2 (08:52→21:14)
[2019-11-19 10:10] LABS: IFOB Positive Control Positive; Immunochemical Fecal Occult Bl Negative (N)
--- NOTE | 2019-11-19 12:37 | PM.IMPN ---
Progress Note: A&P Assessment and Plan (1) Septic shock: Code(s): A41.9 - Sepsis, unspecified organism; R65.21 - Severe sepsis with septic shock Status: Acute Assessment and Plan: ------Due to PNA. Pt was on pressers fora short time but responded well and bp has now improved. Will continue ceftriaxone, vanc and azithromycin. (2) Pneumonia: Qualifiers: Laterality: left Lung location: lower lobe of lung Pneumonia type: due to unspecified organism Qualified Code(s): J18.9 - Pneumonia, unspecified organism Code(s): J18.9 - Pneumonia, unspecified organism Status: Inactive Assessment and Plan: ------Continue IV antibiotics(D#6) for PNA. Continue Bronchodilators and supplemental o2. Sputum culture has light growth of yeast, likely mouth contaminate. Because of her lung cancer, PNA, and PE I have consulted Dr. Zheng and I appreciate her additional recommendations in this complex patient. (3) Sinus tachycardia: Code(s): R00.0 - Tachycardia, unspecified Status: Acute Assessment and Plan: -----Resolved. secondary to septic shock and beta tesha withdraw. Pt also has a PE. Echo does not show RV failure but does show mod pulm htn. (4) Hyponatremia: Code(s): E87.1 - Hypo-osmolality and hyponatremia Status: Acute Assessment and Plan: ------Likely SIADH from Small cell lung cancer. Fluid restricted diet. sodium stable at 127. she is usually around 130. I have ordered a urine sodium but she did not let the nurse know she was urinating so will have to wait to obtain this. (5) Acute renal failure: Qualifiers: Acute renal failure type: unspecified Qualified Code(s): N17.9 - Acute kidney failure, unspecified Code(s): N17.9 - Acute kidney failure, unspecified Status: Acute Assessment and Plan: -----Resolved. Cr improved to 0.6 today. (6) Pancytopenia: Code(s): D61.818 - Other pancytopenia Status: Acute Assessment and Plan: -----Seen on admission. likely chemotherapy induced. Now WBC increased to 37.7 likely d/t neupogen which has been stopped. It also could be due to c diff since she has been on abx with worsened liquid diarrhea. will test. (7) Small cell lung cancer: Onset Date: ~09/2019 Code(s): C34.90 - Malignant neoplasm of unspecified part of unspecified bronchus or lung Status: Chronic Assessment and Plan: -----Continue heme/onc recommendations. (8) Chronic GERD: Code(s): K21.9 - Gastro-esophageal reflux disease without esophagitis Status: Chronic Assessment and Plan: -------Continue PPI therapy. (9) COPD (chronic obstructive pulmonary disease): Qualifiers: COPD type: unspecified COPD Qualified Code(s): J44.9 - Chronic obstructive pulmonary disease, unspecified Code(s): J44.9 - Chronic obstructive pulmonary disease, unspecified Status: Chronic Assessment and Plan: -----Continue bronchodilators. (10) Hypertension: Qualifiers: Hypertension type: unspecified Qualified Code(s): I10 - Essential (primary) hypertension Code(s): I10 - Essential (primary) hypertension Status: Chronic Assessment and Plan: -----Improved today 126/64. Continue beta tesha. (11) CAD (coronary atherosclerotic disease): Qualifiers: Coronary Disease-Associated Artery/Lesion type: unspecified vessel or lesion type [place] vs. transplanted heart: unspecified whether [place] or transplanted heart Associated angina: without angina Qualified Code(s): I25.10 - Atherosclerotic heart disease of [place] coronary artery without angina pectoris Code(s): I25.10 - Atherosclerotic heart disease of [place] coronary artery without angina pectoris Status: Chronic Assessment and Plan: -----No CP or signs of ACS at this time. (12) D
[2019-11-19 16:05] LABS: Sodium Urine Random 21 meq/L
[2019-11-19] MEDS: APIXABAN 5 MG TABLET 10 MG PO (21:14)
--- NOTE | 2019-11-19 23:01 | PM.CNPUL ---
Assessment and Plan Assessment and plan (1) Community acquired bacterial pneumonia: Code(s): J15.9 - Unspecified bacterial pneumonia Status: Acute Assessment and Plan: continue the broad-spectrum antibiotics, repeat the chest x-ray to follow the infiltrate and effusion on the left , (2) Emphysema lung: Code(s): J43.9 - Emphysema, unspecified Status: Acute Assessment and Plan: continue bronchodilator therapy History of Present Illness History of Present Illness Consult date: 12/15/19 Requesting physician: Erna Vargas PA-C Reason for consult: pneumonia Chief complaint: Septic shock Narrative: NEW: Minnie Denton is a 54 yo female seen in consultation for pneumonia. She has medical co-morbidities including COPD. and severe LLL pneumonia with pleural effusion. She has been started on Vancomycin, Cefipime and Azithromycin. WBC very high but improving. Review of Systems Review of Systems: All systems reviewed & are unremarkable except as noted in HPI and below PMFSH Past Medical History Medical History Asthma CAD (coronary atherosclerotic disease) Catie vaginitis Chronic back pain Chronic GERD COPD (chronic obstructive pulmonary disease) CVA (cerebral vascular accident) x2 Emphysema lung Hernia Hyperlipidemia Hypertension Myocardial infarction Nicotine dependence Obesity (BMI 30-39.9) Sleep apnea Surgical History Surgical History H/O prior ablation treatment age 33 H/O tubal ligation age 26 History of heart artery stent S/P cardiac cath Family History Family History (Updated 11/14/19 @ 17:03 by Amalia Coombs APN-C) Father History of blood clots Cancer Mother No problems noted. Sibling Cancer Son CAD (coronary artery disease) Other Family history of malignant neoplasm Social History Social History (Updated 11/14/19 @ 17:06 by CAROLINE Landry) Smoking packs per day: 1 Smoking cigarettes per day: 20.0 Years smoked: 25 Smoking pack-years: 25.00 Smoking status: Former smoker Tobacco type: cigarettes Smoking end date: 04/16/18 Alcohol intake: current Alcohol use details: Occasionally Substance use type: marijuana and prescription drug Last use: 11/10/19 Additional living arrangements comments: boyfriend Additional occupation/education comments: disability Gender identity (if verbalized by the patient): Female Meds Home Medications and Allergies Home Medications Medication Instructions Recorded Confirmed Type albuterol sulfate 90 mcg/actuation 2 inhalation INHALATION Q4H PRN 09/19/19 11/14/19 Rx aerosol inhaler #18 gm hydrocodone-acetaminophen [[place]] 1 tablet PO Q4H PRN 10/07/19 11/14/19 History metoprolol succinate 100 mg PO BID 10/07/19 11/14/19 History omeprazole 40 mg capsule,delayed 40 mg PO DAILY #90 cap 10/15/19 11/14/19 Rx release alprazolam 0.25 mg PO HS PRN 11/14/19 11/14/19 History cyclobenzaprine 10 mg tablet 10 mg PO .at bedtime PRN #90 tablet 12/03/19 Rx escitalopram oxalate 20 mg tablet 20 mg PO DAILY #90 tablet 12/03/19 Rx fluticasone fur. 100 mcg-umeclid 1 inhalation INHALATION DAILY #60 12/03/19 Rx 62.5 mcg-vilant 25 mcg each inhalat.powder gabapentin 100 mg capsule 100 mg PO TID #240 cap 12/03/19 Rx lisinopril 40 mg tablet 40 mg PO DAILY #90 tablet 12/03/19 Rx Allergies Allergy/AdvReac Type Severity Reaction Status Date / Time rosuvastatin AdvReac Intermediate myalgia Verified 10/09/19 06:54 Vital Signs Vital Signs - 24 hr 11/19/19 02:28 11/19/19 02:33 11/19/19 04:26 Temperature 36.8 C Pulse Rate 96 86 87 Respiratory Rate 20 18 20 Blood Pressure 126/64 Pulse O
[2019-11-20] VITALS (15 sets, daily range): BP systolic 121–135; BP diastolic 58–75; PULSE 89–99; RESP 18–22; TEMP 36.5–37.2; O2SAT 92–100
[2019-11-20] MEDS: SODIUM CHLORIDE 0.9% IV 1,000 ML 50 ML IV CONT (02:13)
[2019-11-20] MEDS: CENTRAL LINE FLUSH 20 ML IV PUSH (05:51)
[2019-11-20] MEDS: CENTRAL LINE FLUSH 10 ML IV PUSH ×3 (05:51→21:54)
[2019-11-20 06:20] LABS: Alanine Aminotransferase 25 U/L (4-35); Albumin Level 2.3 g/dL (3.5-5.1); Alkaline Phosphatase 225 U/L (38-126); Anion Gap 7.9 mmol/L (7-16); Aspartate Amino Transferase 28 U/L (14-36); Bilirubin,Total 0.1 mg/dL (0.2-1.3); Blood Urea Nitrogen 5 mg/dL (7-17); Calcium 7.4 mg/dL (8.4-10.2); Carbon Dioxide 27 mmol/L (22-30); Chloride 97 mmol/L (98-107); Estimated CRCL calculation 115 ml/min; Estimated Glomerular Filt Rate > 60; Glucose 91 mg/dL (65-105); Potassium 3.9 mmol/L (3.4-5.0); Sodium 128 mmol/L (137-145)
[2019-11-20 06:30] LABS: Hematocrit 23.6 % (37.0-47.0); Hemoglobin 7.7 g/dL (12.0-15.0); Mean Corpuscular HGB Conc 32.6 g/dl (32-36); Mean Corpuscular Hemoglobin 30.9 pg (26-34); Mean Corpuscular Volume 94.8 fl (80-100); Mean Platelet Volume 10.4 fl (7.4-10.4); Platelet Count Result 301 k/mm3 (150-375); Red Blood Count 2.49 M/mm3 (4.2-5.4); Red Cell Distribution Width 14.6 % (11.5-14.5); White Blood Count 31.6 K/mm3 (4.5-10.0)
[2019-11-20] MEDS: PANTOPRAZOLE 40 MG TABLET PO ×2 (08:10→21:50)
[2019-11-20] MEDS: GABAPENTIN 100 MG CAPSULE PO ×3 (08:10→17:29)
[2019-11-20] MEDS: APIXABAN 5 MG TABLET 10 MG PO (08:10)
[2019-11-20] MEDS: THIAMINE HCL 100 MG TABLET PO (08:11)
[2019-11-20] MEDS: ESCITALOPRAM OXALATE 10 MG TABLET 20 MG PO (08:11)
[2019-11-20] MEDS: METOPROLOL SUCCINATE EXT REL 100 MG TABCR PO ×2 (08:11→21:50)
[2019-11-20] MEDS: FOLIC ACID 1 MG TABLET PO (08:12)
[2019-11-20] MEDS: FLUTICASONE/SALMETEROL 45-21 MCG INHALER 1 PUFF 2 PUFF INHALATION ×2 (09:18→21:54)
--- NOTE | 2019-11-20 12:33 | PM.PNPUL ---
Progress Note: A&P Assessment and Plan (1) Emphysema lung: Code(s): J43.9 - Emphysema, unspecified Status: Acute Assessment and Plan: continue current bronchodilator regimen. (2) Community acquired bacterial pneumonia: Code(s): J15.9 - Unspecified bacterial pneumonia Status: Acute Assessment and Plan: No greatly improving with broad spectrum antibiotics. - will repeat CT chest with IV contrast to r/o LLL empyema or abcess - if WBC doesn't continue trending down recommend switching Cefipime to Impipenem. - continue Vancomycin for now. - sputum culture ordered today Subjective Date/time seen: 11/20/19 12:34 Interval history: 54 y with COPD and severe LLL pneumonia with pleural effusion. Still feeling unwell on Vancomycin, Cefipime and Azithromycin for 6-7 days. Feeling slightly better but complains of sever left sided pain. WBC very high but improving. Very minimal diarrhea Review of Systems Review of Systems: All systems reviewed & are unremarkable except as noted in HPI and below Exam Const: General: uncomfortable Neck: Neck: supple and no JVD Resp: Auscultation: rales on the left and rhonchi left lower Cardio: Rate: regular rate Rhythm: regular rhythm Heart sounds: no murmurs GI: Auscultation: normal bowel sounds Skin: General skin exam: normal color and no rashes or lesions noted Neuro: Cognition (Neuro): normal cognition Psych: Mental Status: mental status grossly normal Affect: normal affect Objective Data Vital Signs Vital Signs: Vital Signs - 24 hr 11/19/19 14:40 11/19/19 14:41 11/19/19 14:50 Temperature 36.6 C Pulse Rate 88 70 88 Respiratory Rate 18 18 18 Blood Pressure 130/62 Pulse Oximetry 99 11/19/19 20:20 11/19/19 20:25 11/19/19 20:26 Temperature 36.2 C L Pulse Rate 93 92 Respiratory Rate 14 18 Blood Pressure 128/61 Pulse Oximetry 100 96 11/19/19 20:30 11/19/19 21:15 11/20/19 02:24 Temperature Pulse Rate 92 92 89 Respiratory Rate 18 18 18 Blood Pressure Pulse Oximetry 96 11/20/19 02:29 11/20/19 05:34 11/20/19 08:11 Temperature 36.8 C Pulse Rate 89 99 94 Respiratory Rate 18 20 Blood Pressure 134/75 Pulse Oximetry 96 11/20/19 08:25 Temperature Pulse Rate 91 Respiratory Rate 20 Blood Pressure Pulse Oximetry 97 Intake/Output Intake/Output: Intake & Output 11/17/19 11/18/19 11/19/19 11/20/19 23:59 23:59 23:59 23:59 Intake Total 4586.666 4803 3367 1140 Output Total 2600 3250 1400 Balance 9369.727 4886 1967 1140 Meds/Results Medications: Active Medications Generic Name Dose Route Start Last Admin Trade Name Freq PRN Reason Stop Dose Admin Hydrocodone Bitart/Acetaminophen 1 tab 11/15/19 12:18 11/20/19 05:52 [place] 5-325 Mg PO 1 tab Q4H PRN Administration Pain Albuterol 2 puff 11/15/19 12:18 Proventil Hfa INHALATION Q4H PRN shortness of breath or wheezing Alprazolam 0.25 mg 11/15/19 12:18 Xanax PO HS PRN Anxiety Alteplase, Recombinant 2 mg 11/17/19 08:38 11/17/19 15:20 Cathflo Activase IV PUSH 2 mg ONCE PRN Administration Line Occlusion Apixaban 10 mg 11/19/19 21:00 11/20/19 08:10 Eliquis PO 10 mg Q12HR JIHAN Administration Cyclobenzaprine HCl 10 mg 11/15/19 12:18 Flexeril PO HS PRN muscle spasm Diphenoxylate HCl/Atropine 1 tablet 11/14/19 21:09 Lomotil Tab 2.5 Mg PO PRN PRN Diarrhea Escitalopram Oxalate 20 mg 11/16/19 09:00 11/20/19 08:11 Lexapro PO 20 mg DAILY JIHAN Administration Folic Acid 1 mg 11/16/19 09:00 11/20/19 08:12 Folic Acid PO 1 mg DAILY JIHAN Administration Gabapentin 100 mg 11/15/19 13:00 11/20/19 08:10 Neurontin PO 100 mg TID JIHAN Administration Heparin Sodium (Porcine) 500 units 11/14/19 07:30 11/17/19 22:58 Heparin Sod Flush 100 Units/Ml IV PUSH 500 units PRN PRN Administration see commen
--- NOTE | 2019-11-20 12:38 | PCOTNOTE ---
Attempted to see patient this pm, however patient declined. Pt stated, I'm on a fluid restriction, so I'm not doing anything! Pt declined all ADLs and exercise at this time. Pt had a new visitor and stated, I'll visit with him. That will be my exercise for the day. Pt warned PT not to come between 2-3pm as that is her show time. Pt stated, I had a shit fit the other day, because she wanted me to do it during my show. I did it anyway, but I was pissed. Informed patient therapy would not disturb her within that time frame.
[2019-11-20 12:39] LABS: Hematocrit 25.2 % (37.0-47.0); Hemoglobin 8.3 g/dL (12.0-15.0)
--- NOTE | 2019-11-20 13:19 | PCPTNOTE ---
The PT treatment was unable to be completed today due to patient refusal. Will continue per Plan of Care frequency and duration.
[2019-11-20 16:22] LABS: Vancomycin Trough 10.8 ug/mL (10.0-20.0)
--- NOTE | 2019-11-20 17:47 | PM.IMPN ---
Progress Note: A&P Assessment and Plan (1) Pneumonia: Qualifiers: Laterality: left Lung location: lower lobe of lung Pneumonia type: due to unspecified organism Qualified Code(s): J18.9 - Pneumonia, unspecified organism Code(s): J18.9 - Pneumonia, unspecified organism Status: Inactive Assessment and Plan: ------Continue IV antibiotics(D#7) for PNA. Patient appears worse and her chest x-ray this morning shows possible worsening. Pulmonology hasordered a CT of her chest to ensure there is no cavitary the infection or empyema. this has been taken but not red. Will wait results.Continue Bronchodilators and supplemental o2. Sputum culture has light growth of yeast, likely mouth contaminate. Another sputum culture has been sent. Reviewed pulmonology notes. (2) Pulmonary embolism: Code(s): I26.99 - Other pulmonary embolism without acute cor pulmonale Status: Acute Assessment and Plan: -----CT positive for extensive PE. Patient was placed on Eliquis but because of her worsening lung disease, I am going to transition her back to Lovenox in case she needs a chest tube in the future. Hopefully this is not needed. (3) Septic shock: Code(s): A41.9 - Sepsis, unspecified organism; R65.21 - Severe sepsis with septic shock Status: Acute Assessment and Plan: ------Due to PNA. Pt was on pressers fora short time but responded well and bp has now improved. Will continue ceftriaxone, vanc and azithromycin. (4) Sinus tachycardia: Code(s): R00.0 - Tachycardia, unspecified Status: Acute Assessment and Plan: -----Resolved. secondary to septic shock and beta tesha withdraw. Pt also has a PE. Echo does not show RV failure but does show mod pulm htn. 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 Fluid restricted diet. sodium stable at 128. she is usually around 130. (6) Acute renal failure: Qualifiers: Acute renal failure type: unspecified Qualified Code(s): N17.9 - Acute kidney failure, unspecified Code(s): N17.9 - Acute kidney failure, unspecified Status: Acute Assessment and Plan: -----Resolved. Cr improved to 0.5 today. (7) Pancytopenia: Code(s): D61.818 - Other pancytopenia Status: Acute Assessment and Plan: -----Seen on admission. likely chemotherapy induced. Now WBC increased to 37.7 likely d/t neupogen which has been stopped. It also could be due to c diff since she has been on abx with worsened liquid diarrhea. will test. (8) Small cell lung cancer: Onset Date: ~09/2019 Code(s): C34.90 - Malignant neoplasm of unspecified part of unspecified bronchus or lung Status: Chronic Assessment and Plan: -----Continue heme/onc recommendations. (9) Chronic GERD: Code(s): K21.9 - Gastro-esophageal reflux disease without esophagitis Status: Chronic Assessment and Plan: -------Continue PPI therapy. (10) COPD (chronic obstructive pulmonary disease): Qualifiers: COPD type: unspecified COPD Qualified Code(s): J44.9 - Chronic obstructive pulmonary disease, unspecified Code(s): J44.9 - Chronic obstructive pulmonary disease, unspecified Status: Chronic Assessment and Plan: -----Continue bronchodilators. (11) Hypertension: Qualifiers: Hypertension type: unspecified Qualified Code(s): I10 - Essential (primary) hypertension Code(s): I10 - Essential (primary) hypertension Status: Chronic Assessment and Plan: -----Improved today 135/69. Continue beta tesha. (12) CAD (coronary atherosclerotic disease): Qualifiers: Coronary Disease-Associated Artery/Lesion type: unspecified vessel or lesion type [place]
[2019-11-20 19:27] LABS: Legionella pneumophila Ag Ur Not Detected (Not Detected)
[2019-11-20] MEDS: ENOXAPARIN 100 MG/ML SYRINGE 90 MG SUB-Q (21:48)
[2019-11-21] VITALS (17 sets, daily range): BP systolic 108–121; BP diastolic 39–52; PULSE 88–100; RESP 18–20; TEMP 36.2–37.2; O2SAT 96–100
[2019-11-21] MEDS: CENTRAL LINE FLUSH 10 ML IV PUSH ×3 (05:23→21:04)
[2019-11-21] MEDS: CENTRAL LINE FLUSH 20 ML IV PUSH (05:23)
[2019-11-21 05:38] LABS: Basophils Absolute Auto 0.2 K/mm3 (0.0-0.1); Basophils Percent Auto 0.6 % (0.2-1.2); Hematocrit 22.1 % (37.0-47.0); Hemoglobin 7.3 g/dL (12.0-15.0); Immature Granulocyte Absolute 4.94 K/mm3 (0.00-0.031); Immature Granulocyte Percent A 15.3 % (0-0.5); Lymphocytes Absolute Auto 1.76 K/mm3 (0.9-3.2); Lymphocytes Percent Auto 5.4 % (18.3-44.2); Mean Corpuscular Hemoglobin 31.1 pg (26-34); Mean Platelet Volume 10.4 fl (7.4-10.4); Monocytes Absolute Auto 3.6 K/mm3 (0.1-0.6); Monocytes Percent Auto 11.1 % (2.6-8.5); Neutrophils Absolute Auto 21.9 K/mm3 (1.3-6.7); Neutrophils Percent Auto 67.6 % (45.5-73.1); Platelet Count Result 334 k/mm3 (150-375); Red Blood Count 2.35 M/mm3 (4.2-5.4); Red Cell Distribution Width 14.7 % (11.5-14.5); White Blood Count 32.4 K/mm3 (4.5-10.0)
[2019-11-21 07:25] LABS: Alanine Aminotransferase 19 U/L (4-35); Albumin Level 2.2 g/dL (3.5-5.1); Alkaline Phosphatase 211 U/L (38-126); Anion Gap 8.8 mmol/L (7-16); Aspartate Amino Transferase 27 U/L (14-36); Bilirubin,Total < 0.1 mg/dL (0.2-1.3); Blood Urea Nitrogen 5 mg/dL (7-17); Calcium 7.3 mg/dL (8.4-10.2); Carbon Dioxide 26 mmol/L (22-30); Chloride 97 mmol/L (98-107); Estimated CRCL calculation 97 ml/min; Estimated Glomerular Filt Rate > 60; Glucose 87 mg/dL (65-105); Potassium 3.8 mmol/L (3.4-5.0); Sodium 128 mmol/L (137-145)
--- NOTE | 2019-11-21 08:00 | PM.IMPN ---
Progress Note: A&P Assessment and Plan (1) Pneumonia: Qualifiers: Laterality: left Lung location: lower lobe of lung Pneumonia type: due to unspecified organism Qualified Code(s): J18.9 - Pneumonia, unspecified organism Code(s): J18.9 - Pneumonia, unspecified organism Status: Inactive Assessment and Plan: ------Continue IV antibiotics(D#8) for PNA. Patient appears worse and CT is worsening. I spoke with pulmonology and Oncology and we have agreed to transfer to [place]. I talked to Dr. elizabeth who accepted the patient in transfer. Awaiting transportation. Continue Bronchodilators and supplemental o2. Sputum culture has light growth of yeast, likely mouth contaminate. Another sputum culture has been sent. Reviewed pulmonology notes. (2) Pulmonary embolism: Code(s): I26.99 - Other pulmonary embolism without acute cor pulmonale Status: Acute Assessment and Plan: -----CT positive for extensive PE. Patient was placed on Eliquis but because of her worsening lung disease, Patient was placed on heparin NK she needs any intervention. (3) Septic shock: Code(s): A41.9 - Sepsis, unspecified organism; R65.21 - Severe sepsis with septic shock Status: Acute Assessment and Plan: ------ Resolved.Due to PNA. Pt was on pressers fora short time but responded well and bp has now improved. Will continue ceftriaxone, vanc and azithromycin. (4) Sinus tachycardia: Code(s): R00.0 - Tachycardia, unspecified Status: Acute Assessment and Plan: -----Resolved. secondary to septic shock and beta tesha withdraw. Pt also has a PE. Echo does not show RV failure but does show mod pulm htn. 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 Fluid restricted diet. sodium stable at 128. she is usually around 130. (6) Acute renal failure: Qualifiers: Acute renal failure type: unspecified Qualified Code(s): N17.9 - Acute kidney failure, unspecified Code(s): N17.9 - Acute kidney failure, unspecified Status: Acute Assessment and Plan: -----Resolved. Cr improved to 0.5 today. (7) Pancytopenia: Code(s): D61.818 - Other pancytopenia Status: Acute Assessment and Plan: -----Seen on admission. likely chemotherapy induced. Now WBC increased to 32.4 Could be due to neupogen but I am worried this may reflect worsening infection. (8) Small cell lung cancer: Onset Date: ~09/2019 Code(s): C34.90 - Malignant neoplasm of unspecified part of unspecified bronchus or lung Status: Chronic Assessment and Plan: -----Continue heme/onc recommendations. (9) Chronic GERD: Code(s): K21.9 - Gastro-esophageal reflux disease without esophagitis Status: Chronic Assessment and Plan: -------Continue PPI therapy. (10) COPD (chronic obstructive pulmonary disease): Qualifiers: COPD type: unspecified COPD Qualified Code(s): J44.9 - Chronic obstructive pulmonary disease, unspecified Code(s): J44.9 - Chronic obstructive pulmonary disease, unspecified Status: Chronic Assessment and Plan: -----Continue bronchodilators. (11) Hypertension: Qualifiers: Hypertension type: unspecified Qualified Code(s): I10 - Essential (primary) hypertension Code(s): I10 - Essential (primary) hypertension Status: Chronic Assessment and Plan: -----Improved today 121/50 Continue beta tesha. (12) CAD (coronary atherosclerotic disease): Qualifiers: Coronary Disease-Associated Artery/Lesion type: unspecified vessel or lesion type [place] vs. transplanted heart: unspecified whether [place] or transplanted heart Associated angina: without angina Qualified
[2019-11-21 09:00] LABS: Hematocrit 24.4 % (37.0-47.0); Mean Corpuscular HGB Conc 32.8 g/dl (32-36); Mean Corpuscular Hemoglobin 31.4 pg (26-34); Mean Corpuscular Volume 95.7 fl (80-100); Mean Platelet Volume 10.5 fl (7.4-10.4); Platelet Count Result 373 k/mm3 (150-375); Red Blood Count 2.55 M/mm3 (4.2-5.4); Red Cell Distribution Width 14.8 % (11.5-14.5); White Blood Count 32.6 K/mm3 (4.5-10.0)
[2019-11-21] MEDS: METOPROLOL SUCCINATE EXT REL 100 MG TABCR PO ×2 (09:02→20:56)
[2019-11-21] MEDS: ESCITALOPRAM OXALATE 10 MG TABLET 20 MG PO (09:03)
[2019-11-21] MEDS: PANTOPRAZOLE 40 MG TABLET PO ×2 (09:03→20:56)
[2019-11-21] MEDS: THIAMINE HCL 100 MG TABLET PO (09:03)
[2019-11-21] MEDS: FOLIC ACID 1 MG TABLET PO (09:04)
[2019-11-21] MEDS: GABAPENTIN 100 MG CAPSULE PO ×3 (09:04→16:45)
[2019-11-21 09:11] LABS: INR 1.9; Prothrombin Time 21.2 Seconds (11.1-14.7)
[2019-11-21 09:12] LABS: Partial Thromboplastin Time 40.9 SECONDS (22.3-36.8)
[2019-11-21 09:28] LABS: Band Neutrophils Percent 11 % (0-6); Lymphocytes Absolute Manual 1.63 K/mm3 (1.1-4.5); Metamyelocytes Percent 4 %; Monocytes Absolute Manual 3.91 K/mm3 (0.1-0.90); Monocytes Percent Manual 12 % (3-9); Neutrophils Absolute Manual 25.75 K/mm3 (1.7-7.2); Neutrophils Percent Manual 68 % (46-73); Total Cells Counted 100
[2019-11-21 09:32] LABS: Hypochromasia 1+ (NORMAL)
--- NOTE | 2019-11-21 09:32 | PCOTNOTE ---
Attempted to see patient this am, however patient declined. Pt stated she had a bad night due to pain. I have no energy. Pt refused all activity at this time.
[2019-11-21] MEDS: HEPARIN SOD/D5W 100 UNITS/ML 25,000 UNITS/250 ML BAG 12 UNITS IV CONT (09:52)
--- NOTE | 2019-11-21 11:25 | PCPTNOTE ---
The PT treatment was unable to be completed today due to patient refusal. Will continue per Plan of Care frequency and duration.
--- NOTE | 2019-11-21 12:10 | PM.PNPUL ---
Progress Note: A&P Assessment and Plan (1) Emphysema lung: Code(s): J43.9 - Emphysema, unspecified Status: Acute Assessment and Plan: continue current bronchodilator regimen. (2) Community acquired bacterial pneumonia: Code(s): J15.9 - Unspecified bacterial pneumonia Status: Acute Assessment and Plan: No greatly improving with broad spectrum antibiotics. - will repeat CT chest with IV contrast to r/o LLL empyema or abcess - if WBC doesn't continue trending down recommend switching Cefipime to Impipenem. - continue Vancomycin for now. - sputum culture ordered today Subjective Date/time seen: 11/21/19 12:10 Review of Systems Review of Systems: All systems reviewed & are unremarkable except as noted in HPI and below Exam Const: General: uncomfortable Neck: Neck: supple and no JVD Resp: Auscultation: rales on the left and rhonchi left lower Cardio: Rate: regular rate Rhythm: regular rhythm Heart sounds: no murmurs GI: Auscultation: normal bowel sounds Skin: General skin exam: normal color and no rashes or lesions noted Neuro: Cognition (Neuro): normal cognition Psych: Mental Status: mental status grossly normal Affect: normal affect Objective Data Vital Signs Vital Signs: Vital Signs - 24 hr 11/20/19 13:50 11/20/19 15:15 11/20/19 15:25 Temperature 36.5 C Pulse Rate 94 93 94 Respiratory Rate 22 H 18 18 Blood Pressure 135/69 Pulse Oximetry 100 11/20/19 21:50 11/20/19 21:54 11/20/19 22:00 Temperature 37.2 C Pulse Rate 94 93 91 Respiratory Rate 18 18 Blood Pressure 121/58 L Pulse Oximetry 95 11/20/19 22:05 11/20/19 22:06 11/21/19 02:29 Temperature Pulse Rate 92 93 91 Respiratory Rate 18 18 18 Blood Pressure Pulse Oximetry 95 11/21/19 02:38 11/21/19 05:23 11/21/19 08:07 Temperature 37.2 C Pulse Rate 90 88 100 Respiratory Rate 18 20 20 Blood Pressure 121/50 L Pulse Oximetry 98 96 11/21/19 08:19 11/21/19 09:02 11/21/19 09:04 Temperature Pulse Rate 99 94 Respiratory Rate 20 Blood Pressure Pulse Oximetry 96 Intake/Output Intake/Output: Intake & Output 11/18/19 11/19/19 11/20/19 11/21/19 23:59 23:59 23:59 23:59 Intake Total 4803 3367 2620 560 Output Total 3250 1400 300 Balance 1553 1967 2320 560 Meds/Results Medications: Active Medications Generic Name Dose Route Start Last Admin Trade Name Freq PRN Reason Stop Dose Admin Hydrocodone Bitart/Acetaminophen 1 tab 11/15/19 12:18 11/21/19 08:58 [place] 5-325 Mg PO 1 tab Q4H PRN Administration Pain Albuterol 2 puff 11/15/19 12:18 Proventil Hfa INHALATION Q4H PRN shortness of breath or wheezing Alprazolam 0.25 mg 11/15/19 12:18 Xanax PO HS PRN Anxiety Alteplase, Recombinant 2 mg 11/17/19 08:38 11/17/19 15:20 Cathflo Activase IV PUSH 2 mg ONCE PRN Administration Line Occlusion Apixaban 10 mg 11/19/19 21:00 11/20/19 08:10 Eliquis PO 10 mg Q12HR JIHAN Administration Cyclobenzaprine HCl 10 mg 11/15/19 12:18 Flexeril PO HS PRN muscle spasm Diphenoxylate HCl/Atropine 1 tablet 11/14/19 21:09 Lomotil Tab 2.5 Mg PO PRN PRN Diarrhea Enoxaparin Sodium 90 mg 11/20/19 21:00 11/20/19 21:48 Lovenox SUB-Q 90 mg Q12HR JIHAN Administration Escitalopram Oxalate 20 mg 11/16/19 09:00 11/21/19 09:03 Lexapro PO 20 mg DAILY JIHAN Administration Folic Acid 1 mg 11/16/19 09:00 11/21/19 09:04 Folic Acid PO 1 mg DAILY JIHAN Administration Gabapentin 100 mg 11/15/19 13:00 11/21/19 09:04 Neurontin PO 100 mg TID JIHAN Administration Heparin Sodium (Porcine) 500 units 11/14/19 07:30 11/17/19 22:58 Heparin Sod Flush 100 Units/Ml IV PUSH 500 units PRN PRN Administration see comments below Heparin Sodium (Porcine) 5,500 units 11/21/19 09:00 Heparin Sodium IV PUSH PRN PRN aPTT les
[2019-11-21 13:29] LABS: Hematocrit 21.7 % (37.0-47.0); Hemoglobin 7.2 g/dL (12.0-15.0)
--- NOTE | 2019-11-21 13:36 | PCRCNOTE ---
Window of time for administration has passed. See next scheduled administration.
[2019-11-21 15:35] LABS: Partial Thromboplastin Time 96.6 SECONDS (22.3-36.8)
--- NOTE | 2019-11-21 16:11 | WPDONCPN ---
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 Patient is on radiation therapy along with concurrent chemotherapy and had completed cycle 1. We will hold further chemotherapy until recovered from the pneumonia. Bacterial pneumonia. Pulmonary note noted. No great improvement on broad-spectrum antibiotic. Repeat CT chest from November 19 showed progression of left lower lobe extensive airspace disease and cavitation with probably necrotic pneumonia and persistent left lower lobe pulmonary thrombosis. Due to possible abscess/empyema decision was made to transfer her to [facility] for drainage. Pancytopenia. Secondary to chemotherapy. Continue broad-spectrum antibiotic coverage. - Time Spent With Patient Total time spent is greater than 50% in coordination of care (as documented) at patient's floor/unit and/or counseling patient: 15 - 25 minutes Subjective Interval history: Locally advanced neuroendocrine small-cell lung cancer diagnosed in August 2019 Pulmonary infection/abscess Review of Systems - Review of Systems Patient is complaining of some cough with yellowish-greenish sputum. She denies any fever but always feeling cold and having chills. Remains quite tired and fatigued. She is ready to be transferred to [facility]. Exam Vital signs: Temp Pulse Resp BP Pulse Ox 36.4 C L 88 20 115/39 L 100 11/21/19 14:54 11/21/19 14:54 11/21/19 14:54 11/21/19 14:54 11/21/19 14:54 Narrative: Lungs are clear to auscultation bilaterally with occasional wheezes Cardiovascular regular rate rhythm no murmurs Abdomen soft nontender nondistended bowel sounds are positive Extremities no edema PN: Objective Data - Labs CBC & Chem 7: 11/21/19 13:13 11/21/19 05:23 Labs: Laboratory Results - last 24 hr 11/16/19 11/20/19 11/21/19 20:16 15:11 05:23 WBC 32.4 H RBC 2.35 L Hgb 7.3 L Hct 22.1 L MCV 94.0 MCH 31.1 MCHC 33.0 RDW 14.7 H Plt Count 334 MPV 10.4 Immature Gran % (Auto) 15.3 H Neut % (Auto) 67.6 Lymph % (Auto) 5.4 L [place] % (Auto) 11.1 H Eos % (Auto) 0.0 Baso % (Auto) 0.6 Lymph # (Auto) 1.76 [place] # (Auto) 3.6 H Eos # (Auto) 0.0 Baso # (Auto) 0.2 H Abs Immat Gran (auto) 4.94 H Absolute Neuts (auto) 21.9 H Absolute Nucleated RBC 0.0 Total Counted Neutrophils % (Manual) Band Neutrophils % Lymphocytes % (Manual) Monocytes % (Manual) Metamyelocytes % Nucleated RBC % 0.0 Abs Neuts (Manual) Abs Lymphs (Manual) Abs Monocytes (Manual) Platelet Estimate Hypochromasia PT INR APTT Sodium Potassium Chloride Carbon Dioxide Anion Gap BUN Creatinine Estim Creat Clear Calc Estimated GFR Glucose Calcium Total Bilirubin Direct Bilirubin AST ALT Alkaline Phosphatase Total Protein Albumin Vancomycin Trough 10.8 Ur L.pneumophila Ag Not detected 11/21/19 11/21/19 11/21/19 05:23 08:45 08:45 WBC 32.6 H RBC 2.55 L Hgb 8.0 L Hct 24.4 L MCV 95.7 MCH 31.4 MCHC 32.8 RDW 14.8 H Plt Count 373 MPV 10.5 H Immature Gran % (Auto) Not Reportable Neut % (Auto) Not Reportable Lymph % (Auto) Not Reportable [place] % (Auto) Not Reportable Eos % (Auto) Not Reportable Baso % (Auto) Not Reportable Lymph # (Auto) Not Reportable [place] # (Auto) Not Reportable Eos # (Auto) Not Reportable Baso # (Auto) Not Reportable Abs Immat Gran (auto) Not Reportable Absolute Neuts (auto) Not Reportable Absolute Nucleated RBC Not Reportable Total Counted 100 Neutrophils % (Manual) 68 Band Neutrophils % 11 H Lymphocytes % (Manual) 5.0 L Monocytes % (Manual) 12 H Metamyelocytes % 4 Nucleated RBC % Not Reportable Abs Neuts (Manual) 25.75 H Abs Lymphs (Manual) 1.63 Abs Monocytes (Manual) 3.[address]
[2019-11-21] MEDS: ALPRAZolam 0.25 MG TABLET PO (20:56)
--- NOTE | 2019-11-21 21:15 | PC.NURSE ---
Addendum entered by Maria Eugenia Nelson RN 11/21/19 23:16: jacques called to notify of estimated hand picker time of [phone] -2230 Original Note: jacques
[2019-11-21] MEDS: FLUTICASONE/SALMETEROL 45-21 MCG INHALER 1 PUFF 2 PUFF INHALATION (21:30)
[2019-11-21 23:12] LABS: Partial Thromboplastin Time 45.8 SECONDS (22.3-36.8)
--- NOTE | 2019-11-21 23:17 | PC.NURSE ---
jacques called to verify the need for ALS transport. Informed that patient was to be transferred with heparin drip. States new pick pack worker time of [phone]. Patient and [facility] made aware of new time.
[2019-11-21] MEDS: HEPARIN SODIUM 5,000 UNITS/ML VIAL 5500 UNITS IV PUSH (23:39)
[2019-11-22] VITALS (7 sets, daily range): BP systolic 110; BP diastolic 54; PULSE 58–94; RESP 18–20; TEMP 36; O2SAT 98
--- NOTE | 2019-11-22 01:33 | PC.NURSE ---
MAHAD CALLED @ 0124. STATED THAT THEY HAVE PUSHED BACK DIRECTOR OF PRODUCT MARKETING TIME TO 0300. LAURA NOTIFIED OF NEW TIME.
--- NOTE | 2019-11-22 03:27 | PC.NURSE ---
MAHAD CALLED TO INFORM OF NEW ENGINEERING TECHNICAL SPECIALIST TIME TO 0630. PET TRAINER AND LAURA NURSE VERIFIED.
[2019-11-22] MEDS: CENTRAL LINE FLUSH 20 ML IV PUSH (05:30)
[2019-11-22] MEDS: CENTRAL LINE FLUSH 10 ML IV PUSH (05:30)
[2019-11-22] MEDS: HEPARIN SOD/D5W 100 UNITS/ML 25,000 UNITS/250 ML BAG 15 UNITS IV CONT (05:40)
[2019-11-22 05:52] LABS: Hemoglobin 7.5 g/dL (12.0-15.0); Mean Corpuscular HGB Conc 32.6 g/dl (32-36); Mean Platelet Volume 10.4 fl (7.4-10.4); Platelet Count Result 403 k/mm3 (150-375); Red Blood Count 2.42 M/mm3 (4.2-5.4); Red Cell Distribution Width 14.7 % (11.5-14.5); White Blood Count 34.5 K/mm3 (4.5-10.0)
--- NOTE | 2019-11-22 05:58 | PC.NURSE ---
[facility], [employer] DIRECTOR RADHA, CALLED STATING THAT THE BED BEING HELD WILL BE RELINQUISHED IF PATIENT IS NOT PICKED UP AND EN ROUTE AT SAID TIME OF 0630. GROUP MARKETING VP, ANTWAN, NOTIFIED. THIS NURSE CALLED [facility] INFORMING THEM OF CURRENT SITUATION. [place] MAINTAINS A SEED [place] PICKER TIME OF 0630
[2019-11-22 06:06] LABS: Partial Thromboplastin Time 115.8 SECONDS (22.3-36.8)
[2019-11-22 06:36] LABS: Band Neutrophils Percent 5 % (0-6); Lymphocytes Absolute Manual 1.72 K/mm3 (1.1-4.5); Metamyelocytes Percent 1 %; Monocytes Absolute Manual 2.07 K/mm3 (0.1-0.90); Monocytes Percent Manual 6 % (3-9); Neutrophils Absolute Manual 30.36 K/mm3 (1.7-7.2); Neutrophils Percent Manual 83 % (46-73); Total Cells Counted 100
[2019-11-22 06:37] LABS: Hypochromasia 2+ (NORMAL)
--- NOTE | 2019-11-22 06:59 | PC.NURSE ---
[facility] NOT HERE THIS NURSE CALLED TO CHECK ON ARRIVAL TIME. TIME ESTIMATED AT 0930. LAURA GARCIA[employer]S [employer]USS MAKER, NOTIFIED. STATES WILL CALL BACK AFTER SPEAKING TO TRANSFER DEPARTMENT REGARDING MAINTAINING THE BED.
--- NOTE | 2019-11-22 07:00 | PM.TDS ---
Transfer Discharge Sum: Prov Provider Date of admission: 11/14/19 01:37 Primary care physician: Power Garza MD Admitting clinician: Bradley Askew MD Consults: 11/14/19 10:29 Consult to Physician Routine Comment: Consulting Provider: Amalia Coombs call or contact centre manager/MD group to consult: Dr. Sylvester Reason for consultation: lung ca, septic shock Has provider been notified: Yes 11/15/19 12:21 Care Coordination Consult Routine Comment: Reason for Consult:: Abuse Consult to Dietitian Routine Reason for Consult:: alcohol abuse/weight loss 11/18/19 Care Coordination Consult Routine Comment: please trin[place] eliquis 10mg BID x7d & 5mg BID after Reason for Consult:: Financial 11/19/19 07:55 Consult to Physician Routine Comment: office staff sent message to Dr. Zheng Consulting Provider: Preeti Zheng call or contact centre manager/MD group to consult: pulmonology Reason for consultation: PNA, PE,cancer Has provider been notified: Yes 11/21/19 08:49 Consult to Physician Routine Comment: notified per Erna Vargas Consulting Provider: Josue Sylvester Reason for consultation: hematology Has provider been notified: Yes DS: Admitting Diagnosis Admitting Diagnosis Admitting Diagnosis: Sepsis, unspecified organism DS: Discharge Diagnosis Discharge Diagnosis (1) Pneumonia: Qualifiers: Laterality: left Lung location: lower lobe of lung Pneumonia type: due to unspecified organism Qualified Code(s): J18.9 - Pneumonia, unspecified organism Code(s): J18.9 - Pneumonia, unspecified organism Status: Inactive Assessment and Plan: ------ Patient appears worse and CT is worsening Despite 8 days of IV antibiotics. Patient is currently on Primaxin, vancomycin, and azithromycin.. I spoke with pulmonology and Oncology and we have agreed to transfer to [facility]. I talked to Dr. elizabeth who accepted the patient in transfer. The patient may benefit from a chest tube for resection due to this non resolving pneumonia and worsening Symptoms with a worsening CT. Sputum culture has light growth of yeast, likely mouth contaminate. her 2nd sputum culture grew moderate growth of yeast. I spoke with pulmonology who did not recommend antifungals at this time. I let Dr. elizabeth no at [facility]. She may benefit from a bronch with direct culture. (2) Pulmonary embolism: Code(s): I26.99 - Other pulmonary embolism without acute cor pulmonale Status: Acute Assessment and Plan: -----CT positive for extensive PE. patient placed on heparin and discharged on that and K she needs intervention (3) Septic shock: Code(s): A41.9 - Sepsis, unspecified organism; R65.21 - Severe sepsis with septic shock Status: Acute Assessment and Plan: ------ Resolved.Due to PNA. Pt was on pressers fora short time but responded well and bp has now improved. (4) Sinus tachycardia: Code(s): R00.0 - Tachycardia, unspecified Status: Acute Assessment and Plan: -----Resolved. secondary to septic shock and beta tesha withdraw. Pt also has a PE. Echo does not show RV failure but does show mod pulm htn. 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 Fluid restricted diet. sodium stable at 128. she is usually around 130. (6) Acute renal failure: Qualifiers: Acute renal failure type: unspecified Qualified Code(s): N17.9 - Acute kidney failure, unspecified Code(s): N17.9 - Acute kidney failure, unspecified Status: Acute Assessment and Plan: -----Resolved. Cr improved to 0.6 today. (7) Pancytopenia: Code(s): D61.818 - Other pancytopenia Status: Acute Assessment and Plan: -----Seen on admission. likely chemotherapy induced. Now WBC increased to 34.5 Could be due t
--- NOTE | 2019-11-22 07:41 | PC.NURSE ---
Heparin drip continues at 14 mls/hour IV.
[2019-11-22] MEDS: FLUTICASONE/SALMETEROL 45-21 MCG INHALER 1 PUFF 2 PUFF INHALATION (07:51)
[2019-11-22] MEDS: GABAPENTIN 100 MG CAPSULE PO (08:41)
[2019-11-22] MEDS: THIAMINE HCL 100 MG TABLET PO (08:41)
[2019-11-22] MEDS: FOLIC ACID 1 MG TABLET PO (08:42)
[2019-11-22] MEDS: METOPROLOL SUCCINATE EXT REL 100 MG TABCR PO (08:42)
[2019-11-22] MEDS: PANTOPRAZOLE 40 MG TABLET PO (08:42)
[2019-11-22] MEDS: ESCITALOPRAM OXALATE 10 MG TABLET 20 MG PO (08:42)
--- NOTE | 2019-11-22 08:59 | PCPTNOTE ---
Went to see patient at this time and she was in process of being transferred outside facility.
--- NOTE | 2019-11-22 09:50 | PCOTNOTE ---
Per RN, patient discharged.
[2019-11-24 13:59] LABS: Pneumococcal Antigen Urine Not Detected (Not Detected)
--- NOTE | 2019-11-25 10:51 | PC.NURSE ---
Sputum cx growing moderate amount of yeast.
[2019-11-25 19:27] LABS: Legionella pneumophila Ag Ur Not Detected (Not Detected)
== END 2019-11-22 09:10 | disposition short-term general hospital (02) | DRG 871 ==
LOC: ANHICU 09:37 → ANH3MED 11-15 17:14 → ANHICU 11-25 17:15
PROVIDERS: Internal Medicine; Internal Medicine Critical Care Medicine; Admitting Provider Family Medicine; PCP Family Medicine; Visit Provider Physician Assistant
DX: A41.9 Sepsis, unspecified organism (principal); J18.9 Pneumonia, unspecified organism; R65.21 Severe sepsis with septic shock; J96.01 Acute respiratory failure with hypoxia; I26.99 Other pulmonary embolism without acute cor pulmonale; D61.810 Antineoplastic chemotherapy induced pancytopenia; C34.91 Malignant neoplasm of unspecified part of right bronchus or lung; N17.9 Acute kidney failure, unspecified; E22.2 Syndrome of inappropriate secretion of antidiuretic hormone; T45.1X5A Adverse effect of antineoplastic and immunosuppressive drugs, initial encounter; K21.9 Gastro-esophageal reflux disease without esophagitis; J43.9 Emphysema, unspecified; I10 Essential (primary) hypertension; I25.10 Atherosclerotic heart disease of native coronary artery without angina pectoris; F10.10 Alcohol abuse, uncomplicated; E78.5 Hyperlipidemia, unspecified; Z79.899 Other long term (current) drug therapy; Z86.73 Personal history of transient ischemic attack (TIA), and cerebral infarction without residual deficits
CPT/HCPCS: 36415; 36600; 71045; 71046; 71260; 71275; 78580; 80048; 80053; 80069; 80076; 80202; 82274; 82805; 83605; 83735; 84100; 84300; 85014; 85018; 85025; 85027; 85055; 85610; 85730; 86140; 87045; 87046; 87070; 87086; 87205; 87324; 87427; 87449; 87899; 93970; 94640; 97110; 97116; 97161; 97166; 97530; 97535; A9270; A9540; C8929; C9113; J0456; J0692; J0696; J0743; J1442; J1644; J1650; J1885; J1940; J2997; J3370; J3475; J7030; J7050; Q9957; Q9967